=== PATIENT | female | born 1995 | race Caucasian/White ===

== ENCOUNTER → 2019-01-29 15:34 | Outpatient (CLI) | payer OTHER, SELFPAY ==
[2015-12-20 13:01] VITALS: BMI 22.3
== END ==
PROVIDERS: Visit Provider Obstetrics & Gynecology
DX: Z12.4 Encounter for screening for malignant neoplasm of cervix (principal)
CPT/HCPCS: 88175; G0145

== ENCOUNTER → 2020-03-15 13:45 | Outpatient (CLI) | payer OTHER, SELFPAY ==
[2015-12-20 13:01] VITALS: BMI 22.3
[2020-03-15 17:10] LABS: Internal QC Validated? YES +Cl - CLEAR BKGD; Pregnancy, Serum, hCG Quali. NEGATIVE Negative
[2020-03-15 17:18] LABS: Thyroid Stim Hormone (TSH) 1.63 uIU/mL (0.358-3.74)
== END ==
PROVIDERS: Visit Provider Obstetrics & Gynecology
DX: N91.2 Amenorrhea, unspecified (principal); Z12.4 Encounter for screening for malignant neoplasm of cervix
CPT/HCPCS: 36415; 84443; 84703; 88175; G0145

== ENCOUNTER → 2020-09-15 14:26 | Outpatient (CLI) | payer OTHER, SELFPAY ==
[2015-12-20 13:01] VITALS: BMI 22.3
[2020-09-15 15:04] LABS: Hematocrit 42.1 % (37-47); Hemoglobin 14.2 g/dL (12.0-15.0); Mean Corp Hgb Conc 33.7 g/dL (32-36); Mean Corpuscular Hgb 31.1 pg (27.0-32.0); Mean Corpuscular Volume 92.1 fL (81-99); Mean Platelet Vol. 10.3 fl (6.2-12.0); Platelet Count 252 K/mm3 (150-450); RBC Distribution Width CV 11.9 % (11.6-14.6); RBC Distribution Width SD 40.1 fl (35.1-43.9); Red Blood Count 4.57 M/mm3 (4.2-5.4); White Blood Count 5.8 K/mm3 (4.4-11.0)
[2020-09-15 15:37] LABS: Anion Gap 3 (5-15); BUN 8 mg/dL (7-18); Calcium,Total 9.1 mg/dL (8.5-10.1); Chloride 107 mmol/L (98-107); Creatinine, Serum 0.67 mg/dL (0.55-1.02); EST Glomerular Filtration Rate 116 mL/min (>60); Est Glom Filt Rate - Afr Amer 141 mL/min (>60); Follicle Stimulating Hormone 5.2 mIU/mL; Glucose 80 mg/dL (74-106); Luteinizing Hormone 9.6 mIU/mL; Potassium 3.6 mmol/L (3.5-5.1); Sodium Level 139 mmol/L (136-145); Thyroid Stim Hormone (TSH) 0.79 uIU/mL (0.358-3.74)
[2020-09-21 08:19] LABS: Testosterone Free 3.8 pg/mL (0.0-4.2)
== END ==
PROVIDERS: Visit Provider Obstetrics & Gynecology
DX: N93.9 Abnormal uterine and vaginal bleeding, unspecified (principal)
CPT/HCPCS: 36415; 80048; 82627; 83001; 83002; 84146; 84402; 84439; 84443; 85027; 82626

== ENCOUNTER → 2020-11-01 09:58 | Outpatient (CLI) | payer OTHER, SELFPAY ==
[2020-11-01 11:17] LABS: Progesterone Level 0.57 ng/mL (See Comment)
== END ==
PROVIDERS: Visit Provider Obstetrics & Gynecology
DX: N97.0 Female infertility associated with anovulation (principal)
CPT/HCPCS: 36415; 84144

== ENCOUNTER 2021-03-17 10:16 | Outpatient (CLI) | payer OTHER, SELFPAY ==
[2021-03-17 11:18] LABS: Absolute Lymphocyte Count 1.71 X10^3/uL (0.83-4.51); Absolute Neutrophil Count 6.4 X10^3/uL (2.0-7.7); Basophil# 0.04 X10^3/uL; Basophil% 0.5 % (0-1); Eosinophil# 0.04 X10^3/uL; Eosinophils% 0.5 % (0-5); Hematocrit 39.4 % (37-47); Hemoglobin 13.3 g/dL (12.0-15.0); Lymphocyte # 1.71 X10^3/ul (0.83-4.51); Lymphocyte % 19.3 % (19-41); Mean Corp Hgb Conc 33.8 g/dL (32-36); Mean Corpuscular Hgb 30.7 pg (27.0-32.0); Mean Platelet Vol. 10.8 fl (6.2-12.0); Monocyte# 0.65 X10^3/uL; Monocyte% 7.3 % (0-10); NRBC Flagged by Analyzer 0 % (0-5); Neutrophil # 6.41 X10^3/uL (2.7-7.7); Neutrophil % 72.2 % (47-70); Platelet Count 245 K/mm3 (150-450); RBC Distribution Width CV 11.8 % (11.6-14.6); RBC Distribution Width SD 39.1 fl (35.1-43.9); Red Blood Count 4.33 M/mm3 (4.2-5.4); White Blood Count 8.9 K/mm3 (4.4-11.0)
[2021-03-17 11:50] LABS: Anion Gap 7 (5-15); BUN 7 mg/dL (7-18); BUN/Creat Ratio 11.5 RATIO (10-20); Calcium,Total 9.2 mg/dL (8.5-10.1); Chloride 106 mmol/L (98-107); Creatinine, Serum 0.61 mg/dL (0.55-1.02); EST Glomerular Filtration Rate 129 mL/min (>60); Est Glom Filt Rate - Afr Amer 156 mL/min (>60); Glucose 79 mg/dL (74-106); Potassium 3.5 mmol/L (3.5-5.1); Sodium Level 136 mmol/L (136-145)
[2021-03-17 12:21] LABS: HIV - WCH Non-Reactive (Nonreactive); Hepatitis B Surface Antigen Non-Reactive (Nonreactive); Hepatitis C Antibody Non-Reactive (Nonreactive); Rubella IgG Reactive (Nonreactive); Syphilis Antibodies Non-reactive
[2021-03-19 00:06] LABS: Chlamydia By Nucleic Acid AMP Negative (Negative)
[2021-03-19 16:18] LABS: Gonococcus By Nucleic Acid AMP Negative (Negative)
== END 2021-03-17 23:59 | disposition short-term general hospital (02) ==
LOC: WOBLAB 10:18
PROVIDERS: Visit Provider Obstetrics & Gynecology
DX: Z34.81 Encounter for supervision of other normal pregnancy, first trimester (principal)
CPT/HCPCS: 36415; 80048; 85025; 86703; 86762; 86780; 86803; 87086; 87088; 87340; 87491; 87591

== ENCOUNTER 2021-04-21 00:37 | Emergency (ER) | payer OTHER, SELFPAY ==
[2021-04-21 00:38] VITALS: BP 112/65; PULSE 68; RESP 16; TEMP 36.4; O2SAT 100; BMI 19.5
[2021-04-21 00:40] VITALS: BP 112/65; PULSE 68; RESP 16; TEMP 36.4; O2SAT 100
--- NOTE | 2021-04-21 00:51 | EX.ED.DYSGE1 ---
HPI History of Present Illness Chief Complaint: Complaint Narrative Narrative: Patient is a 25-year-old female who is a G1, P0 approximate 11 weeks . She states she has a history of recurrent urinary tract infections. She states she went to bed normally and then awoke about 2 hours ago with increased urinary frequency and dysuria. She denies any vaginal bleeding or discharge she denies any fevers or chills. She states that based on her history of recurrent UTIs she feels she has another urinary tract infection and therefore comes in for evaluation PFSH [facility] Home Medications amoxicillin 500 mg PO TID 7 Days #21 cap 04/21/21 [Rx Last Taken Unknown] phenazopyridine [Pyridium] 200 mg PO TID 2 Days #6 tab 04/21/21 [Rx Last Taken Unknown] [id number] [] 1 tab PO DAILY 04/21/21 [History Last Taken Unknown] Allergy/AdvReac Type Severity Reaction Status Date / Time albumin colloid, human Allergy Itching Verified 04/21/21 00:40 [Albumin Colloid, Human] prednisone Allergy Angioedema Verified 04/21/21 00:40 promethazine HCl Allergy Itching Verified 04/21/21 00:40 [From Phenergan] morphine AdvReac HALLUCINATI Verified 04/21/21 00:40 ONS Social History Smoking Status: Never smoker ROS ROS ED Constitutional Constitutional ED: Denies chills or fever(s) ENT ENT ED: Denies sore throat Cardiovascular Cardiovascular: Denies chest pain Respiratory/Chest Respiratory/Chest: Denies cough or dyspnea Gastrointestinal Gastrointestinal: Denies abdominal pain, diarrhea, nausea or vomiting Genitourinary Genitourinary ED: Reports dysuria and urinary frequency; Denies hematuria Musculoskeletal Musculoskeletal: Denies back pain or myalgias Integumentary Denies rash Neurologic Neurologic: Denies headache(s) Hematologic/Lymphatic Hematologic/Lymphatic: Denies easy bleeding or easy bruising EXAM Physical Exam Const Vital Signs: 04/21/21 00:38 04/21/21 00:40 Temperature 97.6 F L 97.6 F L Temperature Source Oral Oral Pulse Rate 68 68 Respiratory Rate 16 16 Blood Pressure 112/65 112/65 Blood Pressure Mean 80 80 Pulse Ox 100 100 Oxygen Delivery Method Room Air Room Air Positive well nourished and well developed General Appearance ED: well developed Eyes PERRL and EOMs intact bilaterally Neck supple Resp normal respiratory effort and clear to auscultation bilaterally Cardio regular rate and regular rhythm GI normal to inspection, nondistended, normoactive bowel sounds, non-tender, non-distended and no masses Auscultation: normoactive bowel sounds Palpation: soft Back/Spine no CVA tenderness Extremity normal to inspection Neuro oriented x3 and CN's II-XII intact bilaterally Sensorium / Orientation: alert Motor Exam: strength 5/5 throughout Psych mental status grossly normal Skin no rashes or lesions noted MDM MDM MDM Narrative Medical decision making narrative: Patient presented to the ER afebrile and normotensive. She also denies any vaginal bleeding or discharge or abdominal pain So I felt need for urine sample at this time. The patient's urine sample showed greater than 100 white blood cells +1 bacteria and no contamination. There are blood cells noted but a believe this is most likely related to the infectious process and coming from the bladder as patient denies any vaginal bleeding. Therefore patient will have the urine sent for culture we will start her on amoxicillin and Pyridium for symptom control and she can follow-up with her [employer]CR[employer] for repeat evaluation Lab Data Attestation: I reviewed the patient's lab results. Labs: Laboratory Results - last 24 hr 04/21/21 00:45 Urine Color Alda Urine Clarity Cloudy Urine pH 6.0 Ur Specific [place] 1.020 Urine Protein 100 H Urine Glucose (UA) Normal Urine Ketones 5 H Urine Occult Blood 250 H Urine Nitrite Negative Urine Bilirubin Negative Urine Urobilinogen Normal Ur Leukocyte Esterase 500 H Urine RBC > 100 SEEN Urine WBC >100 SEEN Ur Squamous Epith Cells 0-5 SEEN Urine Bacteria 1+ Urine Mucus 0 SEEN Discharge Plan Triage Chief Complaint: Complaint ED Provider: James Cortez Dx/Rx/DC Orders Clinical Impression: Acute hemorrhagic cystitis Instructions: ED CYSTITIS Female Adult Prescriptions: New amoxicillin 500 mg capsule 500 mg PO TID 7 Days Qty: 21 RF: 0 phenazopyridine [Pyridium] 200 mg tablet 200 mg PO TID 2 Days Qty: 6 RF: 0 No Action 1 mg Tablet 1 tab PO DAILY RF: 0 Primary Care Provider: Reba Hager NP Referrals: Froilan Albrecht MD [STAFF PHYSICIAN] - 5-7 Days Reba Hager NP, TOTER-C [Primary Care Provider] - Disposition Disposition: Home, Self Care
[2021-04-21 00:55] LABS: Mucous, Urine 0 SEEN /hpf (<or=2+)
[2021-04-21 00:57] LABS: Color, Urine Amber (Yellow); Glucose, Dipstick Normal (Normal); Ketone-Dipstick 5 mg/dl (Negative); Leukocyte Esterase-Dipstick 500 /ul (Negative); Nitrite-Dipstick Negative (Negative); Occult Blood-Urine 250 /ul (Negative); Protein-Dipstick 100 mg/dl (Negative); Urine Bilirubin Dipstick Negative (Negative); Urine Clarity Cloudy (Clear); Urine Urobilinogen Normal (Normal)
[2021-04-21 01:04] LABS: Red Blood Cells-Urine > 100 SEEN /hpf (0-5); White Blood Cells >100 SEEN /hpf (0-5)
[2021-04-21 01:05] LABS: Bacteria 1+ /hpf (None Seen); Squamous Epithelial Cells - UA 0-5 SEEN /hpf (5-10)
[2021-04-21] MEDS: Phenazopyridine 95 MG Tablet 190 MG PO (01:27)
[2021-04-21] MEDS: AMOXICILLIN 500 MG CAPSULE PO (01:27)
== END 2021-04-21 01:29 | disposition home or self-care (01) ==
PROVIDERS: Emergency Provider Emergency Medicine; PCP Nurse Practitioner Primary Care; Visit Provider Emergency Medicine
DX: O23.11 Infections of bladder in pregnancy, first trimester (principal); Z3A.11 11 weeks gestation of pregnancy; N30.01 Acute cystitis with hematuria; Z87.440 Personal history of urinary (tract) infections
CPT/HCPCS: 81001; 87077; 87086; 87088; 87186; 99283

== ENCOUNTER 2021-05-03 14:59 | Outpatient (CLI) | payer OTHER, SELFPAY | END 2021-05-03 23:59 | disposition home or self-care (01) | LOC: LABSPEC 15:00 | PROVIDERS: PCP Nurse Practitioner Primary Care; Visit Provider Obstetrics & Gynecology | DX: N39.0 Urinary tract infection, site not specified (principal) | CPT/HCPCS: 87077; 87086; 87088; 87186 ==

== ENCOUNTER 2021-05-24 09:08 | Outpatient (CLI) | payer OTHER, SELFPAY | END 2021-05-24 23:59 | disposition home or self-care (01) | LOC: WOBLAB 09:08 | PROVIDERS: PCP Nurse Practitioner Primary Care; Visit Provider Obstetrics & Gynecology | DX: Z34.82 Encounter for supervision of other normal pregnancy, second trimester (principal) | CPT/HCPCS: 36415 ==

== ENCOUNTER → 2021-07-08 | Outpatient (CLI) | payer OTHER, SELFPAY ==
[2021-07-08 10:09] LABS: Cholesterol 203 mg/dL (200); Glucose 78 mg/dL (74-106); High Density Lipoprotein 117 mg/dL; Triglycerides 105 mg/dL; Very Low Density Lipoprotein 21 mg/dL (5-40)
== END | disposition home or self-care (01) ==
LOC: WOBLAB 08:34
PROVIDERS: PCP Nurse Practitioner Primary Care; Visit Provider Obstetrics & Gynecology
DX: Z13.29 Encounter for screening for other suspected endocrine disorder (principal); Z13.220 Encounter for screening for lipoid disorders
CPT/HCPCS: 36415; 80061; 82947

== ENCOUNTER → 2021-07-28 | Outpatient (CLI) | payer OTHER, SELFPAY ==
[2021-07-28 09:25] LABS: Hemoglobin 12.5 g/dL (12.0-15.0); Mean Corp Hgb Conc 32.9 g/dL (32-36); Mean Corpuscular Hgb 31.6 pg (27.0-32.0); Mean Corpuscular Volume 96.2 fL (81-99); Mean Platelet Vol. 10.3 fl (6.2-12.0); Platelet Count 185 K/mm3 (150-450); RBC Distribution Width CV 12.3 % (11.6-14.6); RBC Distribution Width SD 43.1 fl (35.1-43.9); Red Blood Count 3.95 M/mm3 (4.2-5.4); White Blood Count 13.7 K/mm3 (4.4-11.0)
[2021-07-28 09:48] LABS: Cholesterol 184 mg/dL (200); Glucose Challenge Gest 1H 50g 106 mg/dL (70-140); High Density Lipoprotein 97 mg/dL; Triglycerides 168 mg/dL; Very Low Density Lipoprotein 34 mg/dL (5-40)
== END | disposition home or self-care (01) ==
LOC: WOBLAB 09:10
PROVIDERS: PCP Nurse Practitioner Primary Care; Visit Provider Obstetrics & Gynecology
DX: Z34.82 Encounter for supervision of other normal pregnancy, second trimester (principal)
CPT/HCPCS: 36415; 80061; 82950; 85027

== ENCOUNTER → 2021-10-11 | Outpatient (CLI) | payer OTHER, SELFPAY | END | disposition home or self-care (01) | PROVIDERS: PCP Nurse Practitioner Primary Care; Visit Provider Obstetrics & Gynecology | DX: Z34.90 Encounter for supervision of normal pregnancy, unspecified, unspecified trimester (principal) | CPT/HCPCS: 87077; 87081; 87186 ==

== ENCOUNTER → 2021-10-25 | Outpatient (CLI) | payer OTHER, SELFPAY ==
[2021-10-25 08:50] LABS: ROM Internal Control Test YES-OK TO RESULT pt. (Internal QC); ROM Patient Test Negative (Negative)
== END | disposition home or self-care (01) ==
PROVIDERS: PCP Nurse Practitioner Primary Care; Referring Provider Obstetrics & Gynecology; Visit Provider Obstetrics & Gynecology
DX: N89.8 Other specified noninflammatory disorders of vagina (principal)
CPT/HCPCS: 84112

== ENCOUNTER 2021-11-10 21:30 | Inpatient (IN) | payer OTHER, SELFPAY ==
[2021-11-10 20:35] VITALS: TEMP 36.4
[2021-11-10 20:36] VITALS: BP 120/63; PULSE 86; O2SAT 94
[2021-11-10 21:20] LABS: ROM Internal Control Test YES-OK TO RESULT pt. (Internal QC)
[2021-11-10 21:22] LABS: ROM Patient Test POSITIVE (Negative)
[2021-11-10 21:42] VITALS: BMI 32.1
[2021-11-10] MEDS: Lactated Ringers 1,000 ML 50 ML IV (22:04)
[2021-11-10 22:14] LABS: Absolute Lymphocyte Count 2.99 X10^3/uL (0.83-4.51); Absolute Neutrophil Count 10.5 X10^3/uL (2.0-7.7); Basophil# 0.05 X10^3/uL; Basophil% 0.3 % (0-1); Eosinophil# 0.16 X10^3/uL; Eosinophils% 1.1 % (0-5); Hematocrit 38.5 % (37-47); Hemoglobin 12.8 g/dL (12.0-15.0); Lymphocyte # 2.99 X10^3/ul (0.83-4.51); Mean Corp Hgb Conc 33.2 g/dL (32-36); Mean Corpuscular Hgb 31.4 pg (27.0-32.0); Mean Corpuscular Volume 94.4 fL (81-99); Mean Platelet Vol. 11.1 fl (6.2-12.0); Monocyte# 1.12 X10^3/uL; Monocyte% 7.5 % (0-10); NRBC Flagged by Analyzer 0 % (0-5); Neutrophil # 10.45 X10^3/uL (2.7-7.7); Platelet Count 166 K/mm3 (150-450); RBC Distribution Width CV 12.7 % (11.6-14.6); RBC Distribution Width SD 44.2 fl (35.1-43.9); Red Blood Count 4.08 M/mm3 (4.2-5.4); White Blood Count 14.9 K/mm3 (4.4-11.0)
[2021-11-10 22:44] VITALS: BP 116/54; PULSE 82; PULSE 83; TEMP 36.1; O2SAT 97
[2021-11-10 23:42] VITALS: TEMP 36
[2021-11-10 23:43] VITALS: BP 111/62; PULSE 75; PULSE 76; O2SAT 99
[2021-11-11] VITALS (69 sets, daily range): BP systolic 94–132; BP diastolic 45–74; PULSE 75–117; RESP 16–18; TEMP 36.1–37.3; O2SAT 94–100
[2021-11-11] MEDS: Oxytocin 30 units/NS 500 ml 30 UNITS/500 ML IV.SOLN IV (00:40)
[2021-11-11] MEDS: Penicillin G 3,000,000 Units 50 ML 100 UNITS IV ×3 (02:40→10:49)
--- NOTE | 2021-11-11 02:44 | HP.PCM.OB_ITS ---
HPI - General General Date of Admission: 11/10/21 HPI Narrative RONALD MOHAN, is a 26 F who presents IAL SROM clear fluid Maternal Data Information KHAI Calculator Estimated Delivery Date Method Current WG Current Estimate 11/06/21 Manual 40w 5d PFSH [facility] Medical History (Updated 11/11/21 @ 02:[address] Mracelina Diallo MD) History of blood transfusion Infertility Home Medications [id number] 1 mg tablet 1 tab PO DAILY 04/21/21 [History Last Taken 11/09/21 20:00] Allergy/AdvReac Type Severity Reaction Status Date / Time albumin colloid, human Allergy Itching Verified 11/09/21 14:50 [Albumin Colloid, Human] prednisone Allergy Angioedema Verified 11/09/21 14:50 promethazine HCl Allergy Itching Verified 11/09/21 14:50 [From Phenergan] morphine AdvReac HALLUCINATI Verified 11/09/21 14:50 ONS Surgical History History of hip surgery Social History Smoking Status: Never smoker second hand exposure: No alcohol intake: never substance use type: does not use caffeine: Yes what type of physical activity do you participate in: none seatbelt use: always do you feel safe at home: Yes additional social history: [employer] 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 History 1 Elective abortions Hx Para 0 Spontaneous abortions 0 Hx # Term Pregnancies Ectopic pregnancies Hx # Pregnancies Multiple births # of living children Visit Details Expected Delivery Route/Plan Labor Preferences- CB/BF classes: [] labor support person: [] labor intervention preferences: [] pain management options preferred: [] cut cord/dad catch: [] : [] PP control planned: [] discussed possible routes of delivery and associated risks: [] special requests: [] Plans Covid status: [] Flu vaccine: [] Tdap vaccine: [] Rhogam: [] LARC form signed: [] Problem list reviewed and updated with the most current plan of care details and appropriate orders placed. Relevant counseling for the gestational age provided. 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 no vb lof good fm no regular ctx. gbs collected. 10/19/21 -?-?-?-?-?-?-?-?-?-?-?-?- 37w 3d 166 lb 116/82 Negative -?-?-?-?-?-?-?-?-?-?-?-?- Negative 140 37 Cephalic 1 .5 -?-?-?-?-?-?-?-?-?-?-?-?- 80 -2 JV- no lof , vaginal bleeding, or dec fm. 10/25/21 -?-?-?-?--?-?-?-?-?-?-?-?- 38w 2d 168 lb 100/68 Negative -?-?-?-?-?-?-?-?-?-?-?-?- Negative 158 38 Cephalic 2 -?-?-?-?-?-?-?-?-?-?-?-?- 80 -2 JV- pt com [place] of leaking fluid since sunday a ROM plus was ordered and is pending. 11/02/21 -?-?-?-?-?-?-?-?-?-?-?-?- 39w 3d 167 lb 2 oz 109/74 Nega tive -?-?-?-?-?-?-?-?--?-?-?-?- Negative 140 Cephalic 3 -?-?-?-?-?-?-?-?-?-?-?-?- 80 -2 JV-no lof, vaginal bleeding ,or dec fm. 11/09/21 -?-?-?-?-?-?-?-?-?-?-?-?- 40w 3d 168 lb 111/74 Negative -?-?-?-?-?-?-?-?-?-?-?-?- Negative 145 Cephalic 3 -?-?-?-?-?-?-?-?-?-?-?-?- 80 -1 JV- no com plaints other than fatigue and wants IOL 11/10/21 -?-?-?-?-?-?-?-?-?-?-?-?- 40w 4d 170 lb 120/63 116/54 111/62 118/64 126/67 -?-?-?-?-?-?-?-?-?-?-?-?- -?-?-?-?-?-?-?-?-?-?-?-?- NST FHR Rate Baby A Baseline: 140 Variability:: Moderate Accelerations:: 15 x 15 Decelerations:: None NST Reactive:: Yes FHR Category:: Category I Uterine Activity:: q3-5 ROS Constitutional Constitutional: Reports systems reviewed and no addt'l complaints, except as documented ENT HEENT: Reports systems reviewed and no addt'l complaints, except as documented Cardiovascular Cardiovascular: Reports systems reviewed and no addt'l complaints, except as documented Respiratory/Chest Respiratory/Chest: Reports systems reviewed and no addt'l complaints, except as documented Gastrointestinal Gastrointestinal: Reports systems reviewed and no addt'l complaints, except as d ocumented and nausea; Denies abdominal pain Genitourinary Genitourinary: Reports systems reviewed and no addt'l complaints, except as documented, contractions Details: present and frequency (regular ) and movement Details: present Musculoskeletal Musculoskeletal: Reports systems reviewed and no addt'l complaints, except as documented Integumentary Integumentary: Reports as per HPI Neurologic Neurologic: Reports systems reviewed and no addt'l complaints, except as documented Endocrine Endocrinology: Reports systems reviewed and no addt'l complaints, except as documented Vital Signs Vital Signs Vital Signs: 11/10/21 20:36 11/10/21 20:36 11/10/21 20:36 Temperature Temperature Source Pulse Rate 86 Blood Pressure 120/63 BP Systolic 120 BP Diastolic 63 Pulse Ox 94 11/10/21 20:35 11/10/21 20:36 11/10/21 22:44 Temperature 97.5 F L Temperature Source Temporal Pulse Rate Blood Pressure 116/54 L BP Systolic 116 BP Diastolic 54 Pulse Ox 11/10/21 22:44 11/10/21 22:44 11/10/21 22:44 Temperature 97.0 F L Temperature Source Pulse Rate 82 83 Blood Pressure BP Systolic BP Diastolic Pulse Ox 11/10/21 22:44 11/10/21 23:43 11/10/21 23:43 Temperature Temperature Source Pulse Rate 76 Blood Pressure 111/62 BP Systolic 111 BP Diastolic 62 Pulse Ox 97 11/10/21 23:42 11/10/21 23:43 11/10/21 23:43 Temperature 96.8 F L Temperature Source Pulse Rate 75 Blood Pressure BP Systolic BP Diastolic Pulse Ox 99 11/11/21 00:42 11/11/21 00:42 11/11/21 01:38 Temperature Temperature Source Pulse Rate 77 Blood Pressure 118/64 126/67 H BP Systolic 118 126 BP Diastolic 64 67 Pulse Ox 11/11/21 01:38 11/11/21 01:38 11/11/21 01:39 Temperature 97.3 F L Temperature Source Pulse Rate 79 81 Blood Pressure BP Systolic BP Diastolic Pulse Ox 11/11/21 01:39 Temperature Temperature Source Pulse Rate Blood Pressure BP Systolic BP Diastolic Pulse Ox 100 Weight Weight: 170 lb Body Mass Index (BMI) 32.1 Physical Exam Const alert, oriented x3 and healthy appearing Constitutional Narrative: uncomfortable with contractions HEENT normocephalic and moist oral mucous membranes Head and Scalp: atraumatic Neck full ROM, no lymphadenopathy, supple and thyroid normal General: trachea midline Thyroid: thyroid normal Lymph Lymphatic: no lymphadenopathy noted Chest inspection of chest normal Resp normal respiratory effort Cardio regular rate GI normal to inspection, nondistended, normoactive bowel sounds, soft to palpation and non-tender Inspection: gravid external exam normal Bimanual Exam - Vag & Uterus: uterus non-tender Manual OB Exam: estimated gestational size appropriate, presentation cephalic, dilated, effaced and station Extremity normal to inspection General Extremity: Negative for edema Skin no rashes or lesions noted Neuro deep tendon reflexes 2+ bilaterally Motor Exam: strength 5/5 throughout and clonus absent Psych mental status grossly normal Labs Labs Labs: Blood Type O POSITIVE Antibody Screen NEGATIVE Hct 38.5 % (37-47) Hgb 12.8 g/dL (12.0-15.0) Syphilis Total Ab Non-reactive Rubella IgG Antibody Reactive (Nonreactive) Hep Bs Antigen Non-Reactive (Nonreactive) Chlamydia DNA (SAKINA) Negative (Negative) Neisseria gonorrhoeae DNA (SAKINA) Negative (Negative) HIV 1&2 Antibody Non-Reactive (Nonreactive) Glucose 1 Hr 50 gm 106 mg/dL (70-140) Miscellaneous Test Assessment & Plan (1) Supervision of normal : COMMENT: PRR KHAI 11/06/21 boy All Sonido (2) : QUALIFIERS: Weeks of gestation: 40 weeks Qualified Code(s): Z3A.40 - 40 weeks gestation of COMMENT: nipt low risk male. ntd screen declined. carrier testing negative. nl anatomy with [employer]. ANDRAE 37 weeks. (3) Infertility, female: COMMENT: IUI from [facility] (4) COVID-19 affecting , antepartum: COMMENT: growth US q 4 weeks. baby asa. (5) Positive GBS test: COMMENT: PCN at delivery (6) SROM (spontaneous rupture of membranes): PLAN: Plan Patient presents IAL, plan expectant management for , pitocin PRN if needed. Pain management: prefers natural . GBS neg. Management of any complications: none I have reviewed the [facility] and made any clinically relevant updates.
[2021-11-11] MEDS: LACTATED RINGERS 500 ML 999 ML IV ×3 (02:45→05:27)
[2021-11-11] MEDS: fentaNYL-bupivacaine (epidural) 100 ML BAG EPIDURAL ×2 (05:12→09:34)
[2021-11-11] MEDS: Lactated Ringers 1,000 ML 200 ML IV (07:39)
[2021-11-11] MEDS: Mag Hydrox/Al Hydrox/Simeth 30 ML UDC PO (09:29)
[2021-11-11] MEDS: Oxytocin 30 units/NS 500 ml 30 UNITS/500 ML IV.SOLN 334 UNITS IV (12:38)
[2021-11-11] MEDS: Naproxen 500 MG Tablet PO (15:51)
--- NOTE | 2021-11-11 16:00 | NURSING ---
Report received from Awilda ZAMUDIO, taking over pt care at this time.
[2021-11-11] MEDS: Senna/Docusate Sodium 1 Tablet PO (18:15)
[2021-11-11] MEDS: Acetaminophen 500 MG Tablet 1000 MG PO (21:59)
--- NOTE | 2021-11-11 22:07 | EX.PCM.OBRPT ---
Assessment & Plan (1) SROM (spontaneous rupture of membranes): (2) Positive GBS test: COMMENT: PCN at delivery (3) COVID-19 affecting , antepartum: COMMENT: growth US q 4 weeks. baby asa. (4) Infertility, female: COMMENT: IUI from [facility] (5) : QUALIFIERS: Weeks of gestation: 40 weeks Qualified Code(s): Z3A.40 - 40 weeks gestation of COMMENT: nipt low risk male. ntd screen declined. carrier testing negative. nl anatomy with [employer]. ANDRAE 37 weeks. (6) Supervision of normal : COMMENT: PRR KHAI 11/06/21 fritz Carrizales Sonido (7) Vaginal delivery: COMMENT: SM fritz paysen 40 IAL SROM Maternal Data Information KHAI Calculator Estimated Delivery Date Method Current WG Current Estimate 11/06/21 Manual 40w 5d Vaginal Delivery Operative Information Date of Procedure: 11/11/21 Pre-Operative Diagnosis: IAL Post-Operative Diagnosis: same Surgery / Procedure Performed: Spontaneous Vaginal Delivery Type of Anesthesia: Epidural Special Medications: none Estimated Blood Loss: 300 Fluids Replaced: crystalloid Findings Description of Procedure: Patient began pushing and delivered the head in the ANDRA presentation. The head was delivered atraumatically . The anterior and posterior shoulders delivered without complication followed by the rest of the and the was placed on the maternal abdomen. Delayed cord clamping was employed for approximately 60 seconds. Cord was clamped and cut and gentle traction was applied to the cord and the placenta delivered spontaneously immediately following it was noted to be intact with three-vessel cord. The perineum and vagina were inspected and noted to have a second degree laceration repaired in the usual fashion with 3-0 rpaide. EBL was 300. Patient and tolerated delivery well. Presentation: ANDRA Amniotic Membrane Rupture Type: Spontaneous Amniotic Fluid Description: Lightly stained meconium Placental Delivery Description: Spontaneous Placenta Disposition: [facility] Cord Vessel Description: 3 Vessels Cord Entanglement: None A Gender: Male Delayed Cord Clamping: Yes Post Vaginal Delivery Medications Given After Delivery: IV Pitocin Episiotomy Description: None Laceration: Perineal Extension/lac and 2nd degree Complication Complications: None Procedures Urinary/Genital [id number]: [id number] Vaginal Delivery [facility]
--- NOTE | 2021-11-11 22:08 | DCINST_ITS ---
Discharge Instructions Diet Discharge Diet: No restrictions Activity Discharge Activity: Return to Normal Activity, May Drive, May Shower and May Take a Tub Bath (in 4 weeks) May resume sexual activity in: 6-8 weeks (after seen by OB provider) Weight Bearing Status: Full weight bearing Lifting Restrictions: none Dressing / Incision Call your doctor if you observe: Fever of 101 or Higher, Inability to urinate, Using more than 1 pad per hour (for more than 2 hours in a row or more), Shortness of breath, Dizziness, Chest pain and - (headache not controlled with tylenol, change in vision) Follow Up Care When: in 6 weeks for visit, call the office to make the appointment. If you had elevated blood pressures call the office to be seen within 1 week. Test Results: Test results from this visit will be discussed in further detail at your follow- up appointment, if applicable. Discharge Plan Admission Admit Date/Time: 11/10/21 21:30 Attending Provider: Marcelina Diallo Primary Care Provider: Reba Hager NP Discharge Orders/Prescriptions Prescriptions: No Action 1 mg Tablet 1 tab PO DAILY Referrals / Follow Up: Reba Hager NP, AIR TRAFFIC CONTROL OPERATOR-C [Primary Care Provider] - Disposition Disposition (needs filled in before D/C Order can be placed): Home, Self Care
[2021-11-12 01:06] VITALS: BP 94/54; PULSE 83; RESP 18; TEMP 36.3
[2021-11-12] MEDS: Naproxen 500 MG Tablet PO (04:11)
[2021-11-12 04:12] VITALS: BP 100/47; PULSE 83; RESP 14; TEMP 36.1
[2021-11-12 08:00] VITALS: BP 92/51; PULSE 86; RESP 16; TEMP 36.2; O2SAT 97
--- NOTE | 2021-11-12 08:46 | NURSING ---
labia minor and clitoris protrudes past outer labia. Pt states this is her normal anatomy.
--- NOTE | 2021-11-12 09:15 | PCM.PN.OB ---
Subjective Subjective Patient doing well without complaints. Tolerating PO. Ambulating and voiding without difficulty. feeding well. Denies chest pain, shortness of breath, calf pain/swelling, fevers, chills, lightheadedness. Objective Data Objective Data Vital Signs: Vital Signs Temp Pulse Resp BP Pulse Ox O2 Del Method 97.1 F L 86 16 92/51 L 97 Room Air 11/12/21 08:00 11/12/21 08:00 11/12/21 08:00 11/12/21 08:00 11/12/21 08:00 11/12/21 08:00 Oxygen Delivery Method Room Air Weight: 170 lb Body Mass Index (BMI) 32.1 Intake & Output: Intake and Output for Last 24 Hours 11/10/21 11/11/21 11/12/21 23:59 23:59 23:59 Intake Total 164.17 / 164.17 3885.53 / 3885.53 Output Total 2750 / 2750 Balance 164.17 / 164.17 1135.53 / 1135.53 Lab / Micro Data Result Diagrams: 11/10/21 21:50 Micro: Microbiology 11/10/21 21:50 Nasal Secretion SARS-CoV-2 Antigen (Rapid) - Final ROS Constitutional Constitutional: Reports systems reviewed and no addt'l complaints, except as documented Cardiovascular Cardiovascular: Reports systems reviewed and no addt'l complaints, except as documented Respiratory/Chest Respiratory/Chest: Reports systems reviewed and no addt'l complaints, except as documented Gastrointestinal Gastrointestinal: Reports systems reviewed and no addt'l complaints, except as documented Physical Exam Const alert, oriented x3 and no apparent distress HEENT Head and Scalp: atraumatic Resp normal respiratory effort GI soft to palpation and non-tender Bimanual Exam - Vag & Uterus: uterus non-tender Uterus Palpation: uterus fundus firm (below Umbilicus)
[2021-11-12 10:00] VITALS: BP 87/41; PULSE 79; RESP 16; TEMP 36.4; O2SAT 98
[2021-11-12 15:07] VITALS: BP 104/64; PULSE 90; RESP 18; TEMP 36.3
== END 2021-11-12 16:30 | disposition home or self-care (01) | DRG 807 ==
LOC: WPOUT 21:46 → WP 21:46
PROVIDERS: Admitting Provider Obstetrics & Gynecology; PCP Nurse Practitioner Primary Care; Visit Provider Obstetrics & Gynecology
DX: O98.82 Other maternal infectious and parasitic diseases complicating childbirth (principal); Z37.0 Single live birth; B95.1 Streptococcus, group B, as the cause of diseases classified elsewhere; Z3A.40 40 weeks gestation of pregnancy; Z86.16 Personal history of COVID-19; O77.0 Labor and delivery complicated by meconium in amniotic fluid; O70.1 Second degree perineal laceration during delivery
CPT/HCPCS: 59025; 59050; 84112; 85025; 86850; 86900; 86901; 87426; 99218; J7120; G0378

== ENCOUNTER 2022-07-07 02:56 | Emergency (ER) | payer OTHER, SELFPAY ==
[2022-07-07 02:56] VITALS: BP 127/73; PULSE 82; RESP 16; TEMP 36.8; O2SAT 99; BMI 27.6
[2022-07-07 03:10] LABS: Mucous, Urine 0 SEEN /hpf (<or=2+)
[2022-07-07 03:12] LABS: Color, Urine Amber (Yellow); Glucose, Dipstick Normal (Normal); Ketone-Dipstick Negative (Negative); Leukocyte Esterase-Dipstick 500 /ul (Negative); Nitrite-Dipstick Positive (Negative); Occult Blood-Urine 250 /ul (Negative); Protein-Dipstick 100 mg/dl (Negative); Specific Gravity, Urine 1.025 (1.002-1.030); Urine Clarity Turbid (Clear); Urine Urobilinogen 8 mg/dl (Normal)
[2022-07-07 03:26] LABS: Urine Bilirubin Dipstick 3 mg/dL (Negative)
[2022-07-07 03:34] LABS: Red Blood Cells-Urine > 100 SEEN /hpf (0-5); Squamous Epithelial Cells - UA 5-10 SEEN /hpf (5-10); White Blood Cells 50-100 SEEN /hpf (0-5)
[2022-07-07 03:35] LABS: Bacteria 4+ /hpf (None Seen); Internal QC Validated? YES +Cl - CLEAR BKGD; Pregnancy, Urine Negative Negative
--- NOTE | 2022-07-07 03:47 | EDS_ITS ---
HPI History of Present Illness Chief Complaint: Complaint Narrative Narrative: Patient is a 27-year-old female with past medical history of remote acute kidney injury from gastroenteritis when she was 6 years old. She states ever since that time she feels like she is susceptible to urinary tract infections. She states that during the day she felt normal but this evening started noticing dysuria as well as frequency and urgency. She denies any fevers or chills or back pain. She states there is no concern for . She reports there is no vaginal discharge or bleeding and she does not have concern for STD. However as she has concern for a urinary tract infection she comes in for evaluation [facility] Medical History Acute kidney failure History of blood transfusion Infertility Home Medications cephalexin 500 mg capsule 500 mg PO TID 7 days #21 caps 07/07/22 [Rx Last Taken Unknown] phenazopyridine 200 mg tablet (Pyridium) 200 mg PO TID PRN pain 3 days #9 tabs 07/07/22 [Rx Last Taken Unknown] Allergy/AdvReac Type Severity Reaction Status Date / Time albumin colloid, human Allergy Itching Verified 07/07/22 02:57 [Albumin Colloid, Human] prednisone Allergy Angioedema Verified 07/07/22 02:57 promethazine HCl Allergy Itching Verified 07/07/22 02:57 [From Phenergan] morphine AdvReac HALLUCINATI Verified 07/07/22 02:57 ONS Surgical History History of hip surgery Social History Smoking Status: Never smoker second hand exposure: No alcohol intake: never substance use type: does not use caffeine: Yes what type of physical activity do you participate in: none seatbelt use: always do you feel safe at home: Yes additional social history: [employer] 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 ROS ROS ED Constitutional Constitutional ED: Denies chills or fever(s) ENT ENT ED: Denies sore throat Cardiovascular Cardiovascular: Denies chest pain Respiratory/Chest Respiratory/Chest: Denies cough or dyspnea Gastrointestinal Gastrointestinal: Reports abdominal pain; Denies diarrhea, nausea or vomiting Genitourinary Genitourinary ED: Reports dysuria and urinary frequency; Denies hematuria Musculoskeletal Musculoskeletal: Denies back pain or myalgias Integumentary Denies rash Neurologic Neurologic: Denies headache(s) Hematologic/Lymphatic Hematologic/Lymphatic: Denies easy bleeding or easy bruising EXAM Physical Exam Const Vital Signs: 07/07/22 02:56 07/07/22 03:58 Temperature 98.3 F Temperature Source Temporal Pulse Rate 82 80 Respiratory Rate 16 16 Blood Pressure 127/73 H Blood Pressure Mean 91 Pulse Ox 99 Oxygen Delivery Method Room Air Positive well nourished and well developed General Appearance ED: well developed Eyes PERRL and EOMs intact bilaterally Neck supple Resp normal respiratory effort and clear to auscultation bilaterally Cardio regular rate and regular rhythm GI non-distended GI Narrative: Abdomen is soft and nondistended with normal active bowel sounds. There is pain on palpation in the suprapubic region consistent/concerning for urinary tract infection. No voluntary guarding or rigidity Auscultation: normoactive bowel sounds Palpation: soft Back/Spine no CVA tenderness Extremity normal to inspection Neuro oriented x3 and CN's II-XII intact bilaterally Sensorium / Orientation: alert Psych mental status grossly normal Skin no rashes or lesions noted MDM MDM MDM Narrative Medical decision making narrative: Patient presented to the ER with stable vitals and no CVA pain so my concern for pyelonephritis or kidney stone is low. She has remote history of acute kidney injury when she was 6 years old but as that was over 20 years ago and patient has stable vitals I do not feel there is need for blood work to reassess for this once again. History and exam is most consistent with UTI so therefore urine sample was obtained. test is negative but urine shows changes consistent with infection with +4 bacteria and 50-100 white blood cell. Therefore the urine will be sent for culture and patient will be started on Keflex but as she has no signs of urosepsis and my concern for acute kidney injury is low she is otherwise safe for discharge History & Record Review Discussion w/independent historian: Patient and Significant other Lab Data Attestation: I reviewed the patient's lab results. Labs: Laboratory Results - last 24 hr 07/07/22 03:02 Urine Color Alda Urine Clarity Turbid Urine pH 6.0 Ur Specific [place] 1.025 Urine Protein 100 H Urine Glucose (UA) Normal Urine Ketones Negative Urine Occult Blood 250 H Urine Nitrite Positive H Urine Bilirubin 3 H Urine Urobilinogen 8 H Ur Leukocyte Esterase 500 H Urine RBC > 100 SEEN Urine WBC 50-100 SEEN Ur Squamous Epith Cells 5-10 SEEN Urine Bacteria 4+ Urine Mucus 0 SEEN Urine Test Negative Discharge Plan Triage Chief Complaint: Complaint ED Provider: James Cortez Dx/Rx/DC Orders Clinical Impression: Urinary tract infection Instructions: Urinary Tract Infections in Women Prescriptions: New cephalexin 500 mg capsule 500 mg PO TID 7 Days Qty: 21 0RF phenazopyridine [Pyridium] 200 mg tablet 200 mg PO TID PRN (Reason: pain) 3 Days Qty: 9 0RF Primary Care Provider: Reba Hager NP Referrals: Reba Hager NP, [employer] [Primary Care Provider] - Activity Restrictions/Additional Instructions: Your exam and urine sample today correlate with a urinary tract infection. Take the antibiotic as directed to help resolve the symptoms. It will typically take 2 to 3 days for symptoms to improve. If you have any further concerns please return for repeat evaluation Disposition Disposition: Home, Self Care Discharge Date/Time: 07/07/22 03:59
[2022-07-07] MEDS: Phenazopyridine 95 MG Tablet 190 MG PO (03:50)
[2022-07-07] MEDS: Cephalexin 250 MG Capsule 500 MG PO (03:50)
[2022-07-07 03:58] VITALS: PULSE 80; RESP 16
== END 2022-07-07 03:59 | disposition home or self-care (01) ==
PROVIDERS: Emergency Provider Emergency Medicine; PCP Nurse Practitioner Primary Care; Visit Provider Emergency Medicine
DX: N39.0 Urinary tract infection, site not specified (principal)
CPT/HCPCS: 81001; 81025; 87077; 87086; 87088; 87186; 99283

== ENCOUNTER → 2022-11-14 | Outpatient (CLI) | payer OTHER, SELFPAY ==
[2022-11-14 09:04] LABS: hCG Titer Quant., Serum 31952 mIU/mL (1-3)
== END | disposition home or self-care (01) ==
LOC: PAVLAB 08:09
PROVIDERS: PCP Nurse Practitioner Primary Care; Referring Provider Obstetrics & Gynecology; Visit Provider Obstetrics & Gynecology
DX: O20.0 Threatened abortion (principal); Z3A.00 Weeks of gestation of pregnancy not specified
CPT/HCPCS: 36415; 84702

== ENCOUNTER → 2022-11-16 | Outpatient (CLI) | payer OTHER, SELFPAY ==
--- NOTE | 2022-11-16 16:17 | US_ITS ---
STUDY: FIRST TRIMESTER OBSTETRICAL ULTRASOUND REASON FOR EXAM: Female, 27 years old well being LMP: TECHNIQUE: Transvaginal TECHNICAL QUALITY: Adequate. PRIOR ULTRASOUND: None. FINDINGS: There is visualization of a single gestational sac in a normal intrauterine position. The mean sac diameter (MSD) measures 1.78 cm, indicating an estimated gestational age (EGA) of 6 weeks, 5 days. The gestational sac shape is within normal limits. There is a visualized yolk sac. The yolk sac measures 3.5 mm. The placenta is non-visualized. There is visualization of a live embryo. The crown-rump length (CRL) measures 7.7 mm, indicating an estimated gestational age (EGA) of 6 weeks, 6 days. There is demonstrated cardiac activity with a heart rate of 120 bpm. Small subchorionic bleed measuring 8 x 5 x 8 mm The estimated gestation age (EGA) by LMP is 6 weeks, 6 days. The estimated date of delivery (KHAI) by LMP is July 06, 2023. The estimated gestation age (EGA) by US is 6 weeks, 6 days. The estimated date of delivery (KHAI) by US is July 06, 2023. The uterus measures 10.1 x 6.5 x 4.7 cm. There is no demonstrated uterine fibroid. The cervix is closed. The right ovary measures 4.1 x 2.8 x 2.4 cm. Small cyst measuring 2.6 x 2 cm likely corpus luteum. There is no visualized right adnexal mass or complex lesion. The left ovary measures 2.6 x 1.8 x 1.5 cm. There is no left ovarian cyst. There is no visualized left adnexal mass or complex lesion. There is no fluid in the cul de sac. US/Transvaginal w/Preg US IMPRESSION: Viable intrauterine gestation approximately 7 weeks gestational age with small subchorionic hemorrhage. Small right ovarian cyst likely corpus luteum Electronically Signed: Beck Rees MD at 17:32 EDT ,
== END | disposition home or self-care (01) ==
LOC: US 16:16
PROVIDERS: PCP Nurse Practitioner Primary Care; Referring Provider Obstetrics & Gynecology; Visit Provider Obstetrics & Gynecology
DX: O20.9 Hemorrhage in early pregnancy, unspecified (principal); Z3A.00 Weeks of gestation of pregnancy not specified
CPT/HCPCS: 76817

== ENCOUNTER → 2022-11-29 | Outpatient (CLI) | payer OTHER, SELFPAY ==
[2022-12-02 14:16] LABS: Chlamydia By Nucleic Acid AMP Negative (Negative); Gonococcus By Nucleic Acid AMP Negative (Negative)
[2022-12-05 22:08] LABS: HPV Reflexed? NOT INDICATED
== END | disposition home or self-care (01) ==
LOC: LABSPEC 15:14
PROVIDERS: PCP Nurse Practitioner Primary Care; Referring Provider Registered Nurse; Visit Provider Registered Nurse
DX: O09.91 Supervision of high risk pregnancy, unspecified, first trimester (principal)
CPT/HCPCS: 87086; 87491; 87591; 88175; G0145

== ENCOUNTER → 2022-12-12 | Outpatient (CLI) | payer OTHER, SELFPAY ==
[2022-12-12 08:56] LABS: Absolute Lymphocyte Count 2.18 X10^3/uL (0.83-4.51); Absolute Neutrophil Count 4.1 X10^3/uL (2.0-7.7); Basophil# 0.02 X10^3/uL; Basophil% 0.3 % (0-1); Eosinophil# 0.06 X10^3/uL; Eosinophils% 0.9 % (0-5); Hematocrit 40.5 % (37-47); Hemoglobin 13.5 g/dL (12.0-15.0); Lymphocyte # 2.18 X10^3/ul (0.83-4.51); Mean Corp Hgb Conc 33.3 g/dL (32-36); Mean Corpuscular Hgb 30.3 pg (27.0-32.0); Mean Corpuscular Volume 90.8 fL (81-99); Mean Platelet Vol. 10.5 fl (6.2-12.0); Monocyte% 5.9 % (0-10); NRBC Flagged by Analyzer 0 % (0-5); Neutrophil # 4.13 X10^3/uL (2.7-7.7); Neutrophil % 60.6 % (47-70); Platelet Count 206 K/mm3 (150-450); RBC Distribution Width CV 11.9 % (11.6-14.6); RBC Distribution Width SD 39.6 fl (35.1-43.9); Red Blood Count 4.46 M/mm3 (4.2-5.4); White Blood Count 6.8 K/mm3 (4.4-11.0)
[2022-12-12 09:43] LABS: NATERA MAILED SPECIMEN
[2022-12-12 10:11] LABS: HIV - WCH Non-Reactive (Nonreactive); Hepatitis B Surface Antigen Non-Reactive (Nonreactive); Hepatitis C Antibody Non-Reactive (Nonreactive); Rubella IgG Reactive (Nonreactive); Syphilis Antibodies Non-reactive
== END | disposition home or self-care (01) ==
PROVIDERS: PCP Nurse Practitioner Primary Care; Referring Provider Registered Nurse; Visit Provider Registered Nurse
DX: Z34.81 Encounter for supervision of other normal pregnancy, first trimester (principal)
CPT/HCPCS: 36415; 85025; 86703; 86762; 86780; 86803; 86850; 86900; 86901; 87340

== ENCOUNTER → 2023-03-15 | Outpatient (CLI) | payer OTHER, SELFPAY ==
[2023-03-15 11:17] LABS: Absolute Lymphocyte Count 1.79 X10^3/uL (0.83-4.51); Absolute Neutrophil Count 7.4 X10^3/uL (2.0-7.7); Basophil# 0.06 X10^3/uL; Basophil% 0.6 % (0-1); Eosinophil# 0.05 X10^3/uL; Eosinophils% 0.5 % (0-5); Hematocrit 39.3 % (37-47); Hemoglobin 12.6 g/dL (12.0-15.0); Lymphocyte # 1.79 X10^3/ul (0.83-4.51); Lymphocyte % 17.4 % (19-41); Mean Corp Hgb Conc 32.1 g/dL (32-36); Mean Corpuscular Hgb 30.1 pg (27.0-32.0); Mean Platelet Vol. 9.9 fl (6.2-12.0); Monocyte# 0.84 X10^3/uL; Monocyte% 8.2 % (0-10); NRBC Flagged by Analyzer 0 % (0-5); Neutrophil # 7.42 X10^3/uL (2.7-7.7); Neutrophil % 72.3 % (47-70); Platelet Count 190 K/mm3 (150-450); RBC Distribution Width CV 12.9 % (11.6-14.6); RBC Distribution Width SD 44.2 fl (35.1-43.9); Red Blood Count 4.18 M/mm3 (4.2-5.4); White Blood Count 10.3 K/mm3 (4.4-11.0)
[2023-03-15 11:31] LABS: ALB/GLOB Ratio 0.7 RATIO (0.9-2.4); AST(SGOT) 11 U/L (15-37); Alanine Aminotransfer ALT/SGPT 20 U/L (13-56); Albumin, Serum 2.8 g/dL (3.2-5.0); Alkaline Phosphatase 80 U/L (45-117); Anion Gap 7 (5-15); BUN 9 mg/dL (7-18); BUN/Creat Ratio 17.5 RATIO (10-20); Calcium,Total 9.1 mg/dL (8.5-10.1); Chloride 109 mmol/L (98-107); Creatinine, Serum 0.51 mg/dL (0.55-1.02); EST Glomerular Filtration Rate 154 mL/min (>60); Est Glom Filt Rate - Afr Amer 186 mL/min (>60); Globulin 4.2 g/dL (2.2-4.2); Glucose 74 mg/dL (74-106); Potassium 3.8 mmol/L (3.5-5.1); Sodium Level 139 mmol/L (136-145)
--- OUTSIDE RECORDS SUMMARY | 2023-03-15 12:42 | XMS RPT_ITS | CCD ---
Author Name Unknown Address [address] [place] [address] Organization [facility] Care Team Providers Care Occupational Health Physiotherapist Name Role Phone REFERRING, CINDY ALLISON ID Unavailable Unavailable FLORENCIA CHRIS Unavailable Unavailable FLORENCIA CHRIS Unavailable Unavailable DOT DISABILITY CASE MANAGER-FLORENCIA BLANCAS Primary Care Physicia n NO PRIMARY CAREMD Primary Care Unavailable JOSSIE MONTES Referring Unavailab GERDA Mendez Attending Unavailable Allergies Allergy Classification Reported Allergen(s) Allergy Type Date of Onset Reaction(s) Facility (3 sources) Adhesive Tape Allergy to substance [facility] Work Phone: (3 sources) Albumin Human, CORRECTION; Translations: [albumin human] Drug Allergy [facility] Work Phone: (3 sources) Latex Allergy to substance [facility] Work Phone: (3 sources) predniSONE; Translations: [prednisone] Drug Allergy [facility] Work Phone: (3 sources) Promethazine; Translations: [promethazine] Drug Allergy kidney problem, [facility] Work Phone: Medications Current Medications Medication Drug Class(es) Dates Sig (Normalized) Sig (Original) albuterol MDI (90 mcg/inh) CFC free inhalation aerosol (3 sources) Start: 02-20-2020 take 2 puff(s) by inhalation every four hours as needed for wheezing albuterol MDI (90 mcg/inh) CFC free inhalation aerosol 2 puff(s), Inhalation, q4h, PRN Shortness of breath or wheezing, use with spacer chamber, # 1 EA, 0 Refill(s), Pharmacy: [facility]/pharmacy #[id number], 155, cm, 02/20/20 14:39:00 EST, Height, kg, 02/20/20 14:39:00 EST, Dosing Weight Start Date: 02/20/20 Status: Ordered Multivitamins (3 sources) Start: 01-12-2020 take 1 tablet by mouth once daily Multivitamins Dose = 1 tab(s), Oral, qDay, 0 Refill(s) Start Date: 01/12/20 Status: Ordered Problems Active Problems Problem Classification Problem Date Documented Da te Episodic/Chronic Asthma (3 sources) Asthma 09-17-2019 Chronic Genitourinary symptoms and ill-defined conditions (3 sources) Urinary symptoms 01-12-2020 Episodic Other upper respiratory infections (3 sources) Upper respiratory infection 09-17-2019 Episodic Spondylosis; intervertebral disc disorders; other back problems (3 sources) Low back pain 04-27-2020 Episodic Unclassified (3 sources) Exposure to 2019 novel coronavirus 02-20-2020 Past or Other Problems Problem Classification Problem Date Documented Da te Episodic/Chronic Urinary tract infections (2 sources) Urinary tract infection, site not specified; Translations: [URINARY TRACT INFECTION, SITE NOT SPECIFIED] Onset: 08-30-2016 Episodic Results Test Name Value Interpretation Reference Range Facil ity Encounters Encounter Date Encounter Type Care Provider Facility Start: 02-12-2023 End: 02-12-2023 ambulatory PRIMARY CARE [place] Start: 03-07-2021 End: 03-07-2021 Patient encounter procedure [place] WETZEL APRN-CONFERENCE ASSISTANT [facility] Start: 03-03-2021 End: 03-03-2021 Patient encounter procedure [place] WETZEL APRN-CONFERENCE ASSISTANT [facility] Start: 02-28-2021 End: 02-28-2021 Patient encounter procedure HARIKA ALMONTE MD [facility] Start: 08-30-2016 End: 08-31-2016 Ambulatory PHY WO ID REFERRING Facility:[facility] [place] Procedures Date Procedure Procedure Detail Performing Clinician Hip joint structure (body structure) HARIKA ALMONTE MD Payers Date Payer Category Payer Unknown [id number] 1997 Unknown [id number] Private Health Insurance [id number] Social History Date Type Detail Facility Start: 02-13-2019 Never smoked t obacco (finding) [facility] Sex Assigned At Female [facility] Evaluation + Plan note 04-27-2020 Radiology Note Date & Type Note Facility 04-27-2020 Evaluation + Plan note Future Scheduled TestsXR Spine Lumbar AP/LAT 04/27/20 [facility] Hospital course Narrative Note Date & Type Note Facility Hospital course Narrative No data available for this section [facility] Hospital Discharge instructions Note Date & Type Note Facility Hospital Discharge instructions No data available for this section [facility] Summary Purpose Family History No Family History Records FoundNo Family History Records FoundNo Family History Records FoundNo Family History Records Found Advance Directives No Advanced Directives Records FoundNo Advanced Directives Records FoundNo Advanced Directives Records FoundNo Advanced Directives Records Found Additional Source Comments INFORMATION SOURCE (unrecogn ized section and content) DATE CREATED AUTHOR AUTHOR'S ORGANIZ ATION 02/02/2021 [facility] DATE CREATED AUTHOR AUTHOR'S ORGANIZ ATION 03/08/2021 [facility] ([place]) DATE CREATED AUTHOR AUTHOR'S ORGANIZ ATION 02/14/2023 [place] FOR RECORDS PERTAINING TO PATIENTS WHO ARE OR HAVE BEEN ENROLLED IN A CHEMICAL DEPENDENCY/SUBSTANCEABUSE PROGRAM, SOME INFORMATION MAY BE OMITTED. This clinical summary was aggregated from multiple sources. Caution should be exercised in using it in the provision of clinical care. This summary normalizes information from multiple sources, and as a consequence, information in this document may materially change the coding, format and clinical context of patient data. In addition, data may be omitted in some cases. CLINICAL DECISIONS SHOULD BE BASED ON THE PRIMARY CLINICAL RECORDS. [facility] [employer] [facility]. provides no warranty or guarantee of the accuracy or completeness of information in this document.
== END | disposition home or self-care (01) ==
PROVIDERS: PCP Nurse Practitioner Primary Care; Referring Provider Obstetrics & Gynecology; Visit Provider Obstetrics & Gynecology
DX: L29.9 Pruritus, unspecified (principal)
CPT/HCPCS: 36415; 80053; 85025

== ENCOUNTER → 2023-04-13 | Outpatient (CLI) | payer OTHER, SELFPAY ==
[2023-04-13 10:25] LABS: Absolute Lymphocyte Count 2.06 X10^3/uL (0.83-4.51); Absolute Neutrophil Count 9.3 X10^3/uL (2.0-7.7); Basophil# 0.05 X10^3/uL; Basophil% 0.4 % (0-1); Eosinophils% 0.8 % (0-5); Hematocrit 38.5 % (37-47); Hemoglobin 12.8 g/dL (12.0-15.0); Lymphocyte # 2.06 X10^3/ul (0.83-4.51); Lymphocyte % 16.6 % (19-41); Mean Corp Hgb Conc 33.2 g/dL (32-36); Mean Corpuscular Hgb 31.2 pg (27.0-32.0); Mean Corpuscular Volume 93.9 fL (81-99); Mean Platelet Vol. 10.2 fl (6.2-12.0); Monocyte# 0.72 X10^3/uL; Monocyte% 5.8 % (0-10); NRBC Flagged by Analyzer 0 % (0-5); Neutrophil # 9.32 X10^3/uL (2.7-7.7); Platelet Count 156 K/mm3 (150-450); RBC Distribution Width CV 13.1 % (11.6-14.6); RBC Distribution Width SD 44.2 fl (35.1-43.9); White Blood Count 12.4 K/mm3 (4.4-11.0)
--- OUTSIDE RECORDS SUMMARY | 2023-04-13 10:32 | XMS RPT_ITS | CCD ---
Author Name Unknown Address [address] [place] [address] Organization [facility] Care Team Providers Care Fountain Pen Nibs Inspector Name Role Phone REFERRING, CINDY ALLISON ID Unavailable Unavailable FLORENCIA CHRIS Unavailable Unavailable FLORENCIA CHRIS Unavailable Unavailable DOT RETAIL INVENTORY CONTROL CLERK-FLORENCIA BLANCAS Primary Care Physicia n NO PRIMARY CAREMD Primary Care Unavailable JOSSIE MONTES Referring Unavailab GERDA Mendez Attending Unavailable Allergies Allergy Classification Reported Allergen(s) Allergy Type Date of Onset Reaction(s) Facility (3 sources) Adhesive Tape Allergy to substance [facility] Work Phone: (3 sources) Albumin Human, RESIDENTIAL; Translations: [albumin human] Drug Allergy [facility] Work Phone: (3 sources) Latex Allergy to substance [facility] Work Phone: (3 sources) predniSONE; Translations: [prednisone] Drug Allergy [facility] Work Phone: (3 sources) Promethazine; Translations: [promethazine] Drug Allergy kidney problem, [facility] Work Phone: Medications Current Medications Medication Drug [...] chamber, # 1 EA, 0 Refill(s), Pharmacy: [facility]/pharmacy #[id number], 155, cm, 02/20/20 14:39:00 EST, Height, [...] Start: 02-12-2023 End: 02-12-2023 ambulatory PRIMARY CARE [facility] Start: 03-07-2021 End: 03-07-2021 Patient encounter procedure [place] WETZEL APRN-PROMOTIONAL ADVERTISING ASSISTANT [facility] Start: 03-03-2021 End: 03-03-2021 Patient encounter procedure [place] WETZEL APRN-PROMOTIONAL ADVERTISING ASSISTANT [facility] Start: 02-28-2021 End: 02-28-2021 Patient encounter procedure HARIKA ALMONTE MD [facility] Start: 08-30-2016 End: 08-31-2016 Ambulatory PHY WO ID REFERRING Facility:[facility] [place] Procedures Date Procedure Procedure Detail Performing Clinician Hip joint structure (body structure) HARIKA ALMONTE MD Payers Date Payer Category Payer Unknown [id number] 1995 Unknown [id number] Private Health Insurance [id number] Social History Date Type Detail Facility Start: 02-13-2019 Never smoked t obacco (finding) [facility] Sex Assigned At Female [facility] Evaluation + Plan note 04-27-2020 Radiology Note Date & Type Note Facility 04-27-2020 Evaluation + Plan note Future Scheduled TestsXR Spine Lumbar AP/LAT 04/27/20 [facility] Hospital course Narrative Note Date & Type Note Facility Hospital course Narrative No data available for this section [facility] Hospital Discharge instructions Note Date & Type Note Facility Hospital Discharge instructions No data available for this section [facility] Summary Purpose Family History No Family History Records FoundNo Family History Records FoundNo Family History Records FoundNo Family History Records Found Advance Directives No Advanced Directives Records FoundNo Advanced Directives Records FoundNo Advanced Directives Records FoundNo Advanced Directives Records Found Additional Source Comments INFORMATION SOURCE (unrecogn ized section and content) DATE CREATED AUTHOR AUTHOR'S ORGANIZ ATION 02/02/2021 [facility] DATE CREATED AUTHOR AUTHOR'S ORGANIZ ATION 03/08/2021 [facility] ([place]) DATE CREATED AUTHOR AUTHOR'S ORGANIZ ATION 02/14/2023 [facility] FOR RECORDS PERTAINING TO PATIENTS WHO ARE [...] BE BASED ON THE PRIMARY CLINICAL RECORDS. [facility] [employer] [facility]. provides no warranty or guarantee of the accuracy or completeness of information in this document.
[2023-04-13 10:54] LABS: Glucose Challenge Gest 1H 50g 91 mg/dL (70-140)
[2023-04-13 11:19] LABS: HIV - WCH Non-Reactive (Nonreactive); Syphilis Antibodies Non-reactive
== END | disposition home or self-care (01) ==
LOC: LAB 09:45
PROVIDERS: PCP Nurse Practitioner Primary Care; Referring Provider Obstetrics & Gynecology; Visit Provider Obstetrics & Gynecology
DX: Z13.1 Encounter for screening for diabetes mellitus (principal); Z3A.25 25 weeks gestation of pregnancy
CPT/HCPCS: 36415; 82950; 85025; 86703; 86780

== ENCOUNTER → 2023-06-08 | Outpatient (CLI) | payer OTHER, SELFPAY | END | disposition home or self-care (01) | PROVIDERS: PCP Nurse Practitioner Primary Care; Referring Provider Obstetrics & Gynecology; Visit Provider Obstetrics & Gynecology | DX: Z34.90 Encounter for supervision of normal pregnancy, unspecified, unspecified trimester (principal) | CPT/HCPCS: 87081 ==

== ENCOUNTER 2023-06-27 00:16 | Inpatient (IN) | payer OTHER, SELFPAY ==
[2023-06-26 23:49] VITALS: BMI 32.1
[2023-06-26 23:56] VITALS: BP 133/84; PULSE 90; RESP 16; TEMP 36.8; O2SAT 91
[2023-06-26 23:57] VITALS: PULSE 96; O2SAT 96
[2023-06-27] VITALS (85 sets, daily range): BP systolic 89–163; BP diastolic 50–84; PULSE 91–133; RESP 16–20; TEMP 36.4–37.6; O2SAT 79–99
[2023-06-27 06:43] LABS: Absolute Lymphocyte Count 2.85 X10^3/uL (0.83-4.51); Absolute Neutrophil Count 8.9 X10^3/uL (2.0-7.7); Basophil# 0.06 X10^3/uL; Basophil% 0.5 % (0-1); Eosinophil# 0.15 X10^3/uL; Eosinophils% 1.2 % (0-5); Hematocrit 38.4 % (37-47); Lymphocyte # 2.85 X10^3/ul (0.83-4.51); Mean Corp Hgb Conc 33.9 g/dL (32-36); Mean Corpuscular Hgb 30.6 pg (27.0-32.0); Mean Corpuscular Volume 90.4 fL (81-99); Mean Platelet Vol. 11.5 fl (6.2-12.0); Monocyte% 6.9 % (0-10); NRBC Flagged by Analyzer 0 % (0-5); Neutrophil # 8.88 X10^3/uL (2.7-7.7); Neutrophil % 68.6 % (47-70); Platelet Count 133 K/mm3 (150-450); RBC Distribution Width CV 12.8 % (11.6-14.6); RBC Distribution Width SD 41.5 fl (35.1-43.9); Red Blood Count 4.25 M/mm3 (4.2-5.4)
[2023-06-27 06:47] LABS: Syphilis Antibodies Nonreactive
[2023-06-27] MEDS: Lactated Ringers 1,000 ML 200 ML IV ×2 (07:25→13:51)
--- NOTE | 2023-06-27 07:55 | HP.PCM.OB_ITS ---
HPI - General General Date of Admission: 06/27/23 HPI Narrative RONALD MOHAN, is a 28 y/o @ 38 weeks 5 days who presents to L&D in early labor at 10 pm last night. she made slow cervical change and is starting to becoming more uncomfortable .She consents to AROM and wants and epidural soon. Maternal Data Information KHAI Calculator Estimated Delivery Date Method Current WG Current Estimate 07/06/23 LMP (Certain) 38w 5d Other Estimates 07/05/23 Ultrasound #1 38w 6d PFSH PFSH Medical History Acute kidney failure History of blood transfusion Infertility Vaginal delivery Home Medications vit,calcium no.40-iron fum 27 mg iron-folate no.1 1 mg tablet (PNV- Select) tab PO 11/29/22 [History Last Taken Unknown] Allergy/AdvReac Type Severity Reaction Status Date / Time prednisone Allergy Unknown kidney Verified 06/27/23 00:36 failure as child albumin colloid, human Allergy Itching Verified 06/27/23 00:36 [Albumin Colloid, Human] promethazine HCl Allergy Itching Verified 06/27/23 00:36 [From Phenergan] morphine AdvReac HALLUCINATI Verified 06/27/23 00:36 ONS Surgical History History of hip surgery Social History household members: spouse and family pets and animals: Yes pets and animals: cat(s) and dog(s) Smoking Status: Never smoker second hand exposure: No alcohol intake: never substance use type: does not use caffeine: Yes what type of physical activity do you participate in: none deyanira/protestant: Catholic seatbelt use: always do you feel safe at home: Yes additional social history: [employer] Patient works for [employer] in [employer] de[employer]. History 2 Elective abortions Hx Para 1 Spontaneous abortions Hx # Term Pregnancies Ectopic pregnancies Hx # Pregnancies Multiple births # of living children 1 Past Pregnancies Del. Date Name GA/Weeks Outcome Route Bth Weight Gen Labor Lgth Anesthesia Del Locatn Provider FOB 11/11/212021 Pays[place] (boy) 40 live - full term 7lbs 1 3oz Male epidur al [facility] Sonido Delivery Date: 11/11/21 Last Updated by: Gisselle Webb 40w IAL SROM Visit Details Expected Delivery Route/Plan Labor Preferences- CB/BF classes: no labor support person: Sonido labor intervention preferences: [] pain management options preferred: [] cut cord/dad catch: yes : yes PP control planned: [] discussed possible routes of delivery and associated risks: [] special requests: [] Plans Covid status: declined Flu vaccine: declined Tdap vaccine: declines Rhogam: NA LARC form signed: declined movement and labor precautions reviewed. Problem list reviewed and updated with the most current plan of care details and appropriate orders placed. Relevant counseling for the gestational age provided. Continue routine care and follow up unless otherwise noted in visit notes/problem list details OB Flowsheet Initial Weight: 138 lb Date -?-?-?-?-?-?-?-?-?-?-?-?- EGA Weight BP Urine Prot -?-?-?-?-?-?-?-?-?-?-?-?- Glucose FHR FuHt Pres Dilation -?-?-?-?-?-?-?-?-?-?-?-?- Effaced St Visit Note 11/29/22 -?-?-?-?-?-?-?-?-?-?-?-?- 8w 5d 138 lb 6 oz (+6 oz) 108/70 -?-?-?-?-?-?-?-?-?-?-?-?- 168 -?-?-?-?-?-?-?-?-?-?-?-?- LC- CRL con with LMP. KHAI 07/06/2023. accept nipt. 12/25/22 -?-?-?-?-?-?-?-?--?-?-?-?- 12w 3d 136 lb 2 oz (-1 lb 14 oz) 115/72 Negative -?-?-?-?-?-?-?-?-?-?-?-?- Negative 153 -?-?-?-?-?-?-?-?-?-?-?-?- -No VB. Nausea improving. Brief US to confirm live IUP 01/18/23 -?-?-?-?-?-?-?-?-?-?-?-?- 15w 6d 137 lb 6 oz (-10 oz) 99/69 -?-?-?-?-?-?-?-?-?-?-?-?- 140 -?-?-?-?-?-?-?-?-?-?-?-?- - no vb lof cr maping 02/14/23 -?-?-?-?-?-?-?-?-?-?-?-?- 19w 5d 143 lb (+5 lb) 82/56 -?-?-?-?-?-?-?-?-?-?-?-?- 150 -?-?-?-?-?-?-?-?-?-?-?-?- JV- no complaint s. patient's anatomy scan was normal. it's a BOY! 03/15/23 -?-?-?-?-?-?-?-?-?-?-?-?- 23w 6d 148 lb (+10 lb) 100/80 Negative -?-?-?-?-?-?-?-?-?-?-?-?- Negative 145 24 -?-?-?-?-?-?-?-?-?-?-?-?- - no vb lof go od fm n oregular ctx co itching in hadns and feet expecially at night ordered labs co reflux 03/29/23 -?-?-?-?-?-?-?-?-?-?-?-?- 25w 6d 150 lb (+12 lb) 104/62 Negative -?-?-?-?-?-?-?-?-?-?-?-?- Negative 154 -?-?-?-?-?-?-?-?-?-?-?-?- -work in for p ainful bleeding hemorrhoid. See exam. Baby active. No VB. 04/13/23 -?-?-?-?-?-?-?-?-?-?-?-?- 28w 0d 154 lb 6 oz (+16 lb 6 oz) 117/71 Negative -?-?-?-?-?-?-?-?-?-?-?-?- Negative 155 29 -?-?-?-?-?-?-?-?-?-?-?-?- KW-no vb/lof/ctx . good fm. having heart palpitations multiple times throughout the day over the last week. EKG and Cardiology consult placed. KW-no vb/lof/ctx. good fm. h aving heart palpitations multiple times throughout the day over the last week. EKG and Cardiology consult placed. passed 28 week labs 04/23/23 -?-?-?-?-?-?-?-?-?-?-?-?- 29w 3d 160 lb (+22 lb) 116/73 Negative -?-?-?-?-?-?-?-?-?-?-?-?- Negative 140 30 -?-?-?-?-?-?-?-?-?-?-?-?- SM- no vb lof go od fm no regular ctx. palpitations resolving. SM- no vb lof good fm no reg ular ctx. palpitations resolving. larc signed 05/07/23 -?-?-?-?-?-?-?-?-?-?-?-?- 31w 3d 161 lb 8 oz (+23 lb 8 oz) 121/82 Negative -?-?-?-?-?-?-?-?-?-?-?-?- Negative 145 32 -?-?-?-?-?-?-?-?-?-?-?-?- JV- pt cancelled her holter monitor today because is feeling better. no palpitations x 2 weeks. plan to check position next visit. 05/23/23 -?-?-?-?-?-?-?-?-?-?-?-?- 33w 5d 165 lb 2 oz (+27 lb 2 oz) 115/74 Negative -?-?-?-?-?-?-?-?-?-?-?-?- Negative 140 33 Cephalic -?-?-?-?-?-?-?-?-?-?-?-?- LC-no vb/ctx/lof good fm. no concerns. vtx on handheld us 06/08/23 -?-?-?-?-?-?-?-?-?-?-?-?- 36w 0d 167 lb (+29 lb) 126/80 Trace -?-?-?-?-?-?-?-?-?-?-?-?- Negative 149 37 Cephalic 1 .5 -?-?-?-?-?-?-?-?-?-?-?-?- 0 -3 JV- no lof , vaginal bleeding, or cramping. starting to have contractions. 06/13/23 -?-?-?-?-?-?-?-?-?-?-?-?- 36w 5d 171 lb 2 oz (+33 lb 2 oz) 110/68 Negative -?-?-?-?-?-?-?-?-?-?-?-?- Negative 138 37 -?-?-?-?-?-?-?-?-?-?-?-?- MH-No VB, LOF. I rreg BH CTX. Declines internal exam. Good FM. GBS negative 06/19/23 -?-?-?-?-?-?-?-?-?-?-?-?- 37w 4d 170 lb (+32 lb) 122/81 Negative -?-?-?-?-?-?-?-?-?-?-?-?- Negative 135 39 Cephalic 3 -?--?-?-?-?-?-?-?-?-?-?-?- 50 -2 kw- no vb/ lof/ctx. good fm. labor precautions reviewed ROS Constitutional Constitutional: Denies change in weight, fatigue, fever(s), headache(s), poor appetite or weakness Eyes Eyes: Denies blurry vision, change in vision, seeing flashes or spots in vision ENT HEENT: Denies dizziness, headache(s), loss taste/smell or sore throat Cardiovascular Cardiovascular: Denies chest pain, dizziness, dyspnea, irregular heart rhythm, leg edema, palpitations, rapid heart rate or vomiting Respiratory/Chest Respiratory/Chest: Denies chest tightness, cough, dyspnea or breast pain Gastrointestinal Gastrointestinal: Denies abdominal pain, anorexia, constipation, cramping, diarrhea, hemorrhoids, vomiting or weight changes Genitourinary Genitourinary: Denies dysuria, flank pain, genital lesions, genital pain, urinary frequency or urinary urgency Musculoskeletal Musculoskeletal: Denies back pain, difficulty walking, joint pain, limited range of motion, muscle cramps or numbness Integumentary Integumentary: Denies lesions or unusual bruising Neurologic Neurologic: Denies abnormal movements, abnormal speech, dizziness, numbness, seizure-like activity or syncope Psychiatric Psychiatric: Denies anxiety, behavioral changes, change in appetite, change in libido, cognitive impairment, confusion, depression, difficulty concentrating, hallucinations or suicidal thoughts Endocrine Endocrinology: Denies excessive sweating, polydipsia or polyuria Hematologic/Lymphatic Hematologic/Lymphatic: Denies easy bleeding, easy bruising or lymphadenopathy Allergic/Immunologic Allergic/Immunologic: Denies itchy eyes, lip swelling, seasonal rhinorrhea, rhinitis, throat swelling, tongue swelling, eczemia, wheezing or asthma Vital Signs Vital Signs Vital Signs: 06/26/23 23:56 06/26/23 23:56 06/26/23 23:56 Temperature Temperature Source Pulse Rate 90 Respiratory Rate Blood Pressure 133/84 H BP Systolic 133 BP Diastolic 84 Pulse Ox 91 06/26/23 23:57 06/26/23 23:57 06/26/23 23:56 Temperature Temperature Source Temporal Pulse Rate 96 Respiratory Rate Blood Pressure BP Systolic BP Diastolic Pulse Ox 96 06/26/23 23:56 06/26/23 23:56 06/27/23 02:53 Temperature 98.2 F Temperature Source Pulse Rate Respiratory Rate 16 Blood Pressure 119/82 H BP Systolic 119 BP Diastolic 82 Pulse Ox 06/27/23 02:53 06/27/23 02:54 06/27/23 02:53 Temperature Temperature Source Temporal Pulse Rate 94 98 Respiratory Rate Blood Pressure BP Systolic BP Diastolic Pulse Ox 06/27/23 02:54 06/27/23 02:53 06/27/23 02:54 Temperature 97.9 F Temperature Source Pulse Rate Respiratory Rate 16 Blood Pressure BP Systolic BP Diastolic Pulse Ox 97 06/27/23 04:56 06/27/23 04:56 06/27/23 04:56 Temperature Temperature Source Temporal Pulse Rate 93 Respiratory Rate Blood Pressure 117/61 BP Systolic 117 BP Diastolic 61 Pulse Ox 06/27/23 04:56 06/27/23 04:56 06/27/23 04:56 Temperature Temperature Source Pulse Rate 98 Respiratory Rate 16 Blood Pressure BP Systolic BP Diastolic Pulse Ox 97 06/27/23 04:56 06/27/23 06:01 06/27/23 06:02 Temperature 98.1 F Temperature Source Temporal Pulse Rate Respiratory Rate Blood Pressure 109/62 BP Systolic 109 BP Diastolic 62 Pulse Ox 06/27/23 06:02 06/27/23 06:01 06/27/23 06:01 Temperature 98.5 F Temperature Source Pulse Rate 97 Respiratory Rate 16 Blood Pressure BP Systolic BP Diastolic Pulse Ox 06/27/23 07:41 06/27/23 07:41 06/27/23 07:40 Temperature Temperature Source Pulse Rate 102 H Respiratory Rate 18 Blood Pressure 129/84 H BP Systolic 129 BP Diastolic 84 Pulse Ox Weight Weight: 170 lb 6.4 oz Body Mass Index (BMI) 32.1 Physical Exam Const alert, oriented x3, no apparent distress and healthy appearing General Appearance: cooperative; Negative for anxious HEENT normocephalic Face and Sinus: normal facial exam Eyes EOMs intact bilaterally and no scleral icterus General Eye: normal appearance of both eyes Neck full ROM and supple Lymph Lymphatic: no lymphadenopathy noted Chest Chest: abnormal inspection of the chest Resp normal respiratory effort Effort and Inspection: able to speak in complete sentences Cardio regular rate GI soft to palpation and non-tender Inspection: gravid Palpation: soft; Negative for tender external exam normal Narrative: cs is 4.5/70/-2, membranes ruptured with clear fluid return. Back/Spine no CVA tenderness Extremity normal to inspection, full ROM and no clubbing, cyanosis or edema General Extremity: Negative for calf tenderness or edema Skin Lesions: no lesions Rashes: no rashes Psych mental status grossly normal Labs Labs Labs: Blood Type O POSITIVE Antibody Screen NEGATIVE Hct 38.4 % (37-47) Hgb 13.0 g/dL (12.0-15.0) Obstetrics Ultrasound Syphilis Total Ab Nonreactive Rubella IgG Antibody Reactive (Nonreactive) Hep Bs Antigen Non-Reactive (Nonreactive) Hepatitis C Antibody Non-Reactive (Nonreactive) Chlamydia DNA (SAKINA) Negative (Negative) N.gonorrhoeae DNA (SAKINA) Negative (Negative) HIV 1&2 Antibody Non-Reactive (Nonreactive) Glucose 1 Hr 50 gm 91 mg/dL (70-140) Rhogam given: No Miscellaneous Test Assessment & Plan (1) Palpitations: COMMENT: Resolved The patient's palpitations are very short-lived and not associated with syncope. She has had some dizziness. These appear to be postprandial primarily. She does have a wearable but is not able to utilize it yet due to it needs to be set up. (2) Hemorrhoid thrombosis: COMMENT: Resolved <1cm. Warm soaks, comp supp at [facility]. (3) Chronic pruritus: COMMENT: Improved. hands and feet, labs ordered. supportive care. norm bile acids. (4) : QUALIFIERS: Weeks of gestation: 37 weeks Qualified Code(s): Z3A .37 - 37 weeks gestation of COMMENT: Neg GBS NIPT low risk, carrier and ntd declined, normal anatomy (5) Supervision of high risk in first trimester: COMMENT: [id number] KHAI 07/06/2023. boy PC: All. :sonido. PLAN: Plan Patient presents IAL, plan expectant management for , pitocin/AROM PRN if needed. Pain management: plans epidural. GBS negative Management of any complications: none I have reviewed the [facility] and made any clinically relevant updates.
[2023-06-27] MEDS: Lactated Ringers 1,000 ML 999 ML IV (09:25)
[2023-06-27] MEDS: fentaNYL-bupivacaine (epidural) 100 ML BAG EPIDURAL (11:00)
[2023-06-27] MEDS: LACTATED RINGERS 500 ML 999 ML IV ×2 (12:05→13:20)
--- NOTE | 2023-06-27 13:07 | PN.OBGYN_ITS ---
Subjective Subjective pt is comfortable with epidural. Pit not on at this time. current tracing: FHT: Moderate variability reactive no decelerations category I tracing [place]: coupling Contractions then q 4-5 min cx: 7/90/-0 head turned to ROP on exam and patient put on her right side with a peanut ball. reviewed tracing abnormalities since last note: no changes A/P: continue with labor management if no change in 2 hours will start pit. Objective Data Objective Data Vital Signs: Vital Signs Temp Pulse Resp BP Pulse Ox 97.6 F L 106 H 16 94/52 L 99 06/27/23 12:55 06/27/23 13:02 06/27/23 12:55 06/27/23 13:02 06/27/23 11:53 Weight: 170 lb 6.4 oz Body Mass Index (BMI) 32.1 Intake & Output: Intake and Output for Last 24 Hours 06/25/23 06/26/23 06/27/23 23:59 23:59 23:59 Intake Total 1400 / 1400 Balance 1400 / 1400 Lab / Micro Data 06/27/23 00:45 Labs: Laboratory Results - last 24 hr 06/27/23 00:45: WBC 13.0 H, RBC 4.25, Hgb 13.0, Hct 38.4, MCV 90.4, MCH 30.6, MCHC 33.9, RDW Std Deviation 41.5, RDW Coeff of Víctor 12.8, Plt Count 133 L, MPV 11.5, Immature Gran % (Auto) 0.800, Neut % (Auto) 68.6, Lymph % (Auto) 22.0, [place] % (Auto) 6.9, Eos % (Auto) 1.2, Baso % (Auto) 0.5, Absolute Neuts (auto) 8.9 H, Absolute Lymphs (auto) 2.85, Nucleated RBC % 0, Syphilis Total Ab Nonreactive, Blood Type O POSITIVE, Antibody Screen NEGATIVE
[2023-06-27] MEDS: Mag Hydrox/Al Hydrox/Simeth 30 ML UDC PO (15:02)
[2023-06-27] MEDS: Oxytocin 10 UNITS/ML Vial IM (15:40)
[2023-06-27] MEDS: Oxytocin 15 Units/NS 250ml 15 UNITS/250 ML IV.SOLN 83 UNITS IV (15:40)
--- NOTE | 2023-06-27 15:53 | OP.PCM_ITS ---
Assessment & Plan (1) Palpitations: COMMENT: Resolved The patient's palpitations are very short-lived and not associated with syncope. She has had some dizziness. These appear to be postprandial primarily. She does have a wearable but is not able to utilize it yet due to it needs to be set up. (2) Hemorrhoid thrombosis: COMMENT: Resolved <1cm. Warm soaks, comp supp at [facility]. (3) Chronic pruritus: COMMENT: Improved. hands and feet, labs ordered. supportive care. norm bile acids. (4) : QUALIFIERS: Weeks of gestation: 37 weeks Qualified Code(s): Z3A.37 - 37 weeks gestation of COMMENT: Neg GBS NIPT low risk, carrier and ntd declined, normal anatomy (5) Supervision of high risk in first trimester: COMMENT: [id number] KHAI 07/06/2023. boy PC: All. :jassi. (6) Active labor at term: Maternal Data Information KHAI Calculator Estimated Delivery Date Method Current WG Current Estimate 07/06/23 LMP (Certain) 38w 5d Other Estimates 07/05/23 Ultrasound #1 38w 6d Final KHAI Source: LMP Gestational age: 38 weeks 5 days Vaginal Delivery Maternal Presentation Maternal Presentation: Active Labor Type of Induction: Amniotomy Operative Information Date of Procedure: 06/27/23 Pre-Operative Diagnosis: 28 y/o @ 38 weeks, active labor Post-Operative Diagnosis: 28 y/o @ 38 weeks, active labor Surgery / Procedure Performed: Spontaneous Vaginal Delivery Type of Anesthesia: Epidural Anesthesiologist: Conor Gutierrez Drain: Archuleta to straight drain Estimated Blood Loss: 300 cc Time of Delivery: 13:35 Findings Description of Procedure: Patient began pushing and delivered the head in the ANDRA presentation. The head was delivered atraumatically and a loose nuchal cord ?1 was identified and easily reduced over the 's head. The anterior and posterior shoulders delivered without complication followed by the rest of the and the was placed on the maternal abdomen. Delayed cord clamping was employed for approximately 60 seconds. Cord was clamped and cut and gentle traction was applied to the cord and the placenta delivered spontaneously immediately following it was noted to be intact with three-vessel cord. The perineum and vagina were inspected and found to have a 1st degree perineal laceration, repaired with a 2-0 vicryl. EBL was 300cc. Patient and tolerated delivery well. Presentation: Vertex Amniotic Membrane Rupture Type: Artificial Time of Membrane Rupture: 7:30 am Amniotic Fluid Description: Clear Placental Delivery Description: Spontaneous Placenta Disposition: [facility] Cord Vessel Description: 3 Vessels Cord Entanglement: Around neck x 1, loose Nuchal Cord Compression: Without compression A Gender: Male (1 minute): 9 (5 minute): 10 Delayed Cord Clamping: Yes Post Vaginal Delivery Medications Given After Delivery: IV Pitocin and IM Pitocin Episiotomy Description: None Laceration: 1st degree Complication Complications: None Multi Select Codes Urinary/Genital Urinary/Genital CPT Codes: 51205 Vaginal Delivery [facility]
--- NOTE | 2023-06-27 15:57 | DCINST_ITS ---
Discharge Instructions Diet Discharge Diet: No restrictions Activity Discharge Activity: Return to Normal Activity, May Not Drive (while taking narcotic pain medications.) and May Shower May resume sexual activity in: 4-6 weeks Dressing / Incision Call your doctor if your incision/area has: Continuous Slow Oozing, Sudden Increased Bleeding, Increased Pain/ Swelling, Increased Redness and Foul Smelling Discharge Follow Up Care Please Follow Up With: Chiqui Soto DO When: Call [phone] to make an appointment with your doctor in 6 weeks. If you had elevated blood pressure or 4th degree laceration, you will need to be seen in 2 weeks. Test Results: Test results from this visit will be discussed in further detail at your follow- up appointment, if applicable. Discharge Plan Admission Admit Date/Time: 06/27/23 00:16 Attending Provider: Marcelina Diallo Primary Care Provider: Reba Hager NP Discharge Orders/Prescriptions Prescriptions: No Action PNV-Select 27-1 mg tablet PO Referrals / Follow Up: Reba Hager NP, [employer] [Primary Care Provider] -
[2023-06-27] MEDS: 0.9% Saline Lock 10 ML Syringe IV (18:56)
--- NOTE | 2023-06-27 20:17 | EKG12_ITS ---
Test Reason : tachycardia Blood Pressure : / mmHG Vent. Rate : 120 BPM Atrial Rate : 120 BPM P-R Int : 188 ms QRS Dur : 078 ms QT Int : 294 ms P-R-T Axes : 067 028 017 degrees QTc Int : 415 ms Sinus tachycardia Otherwise normal ECG No previous ECGs available Confirmed by EH RUBY, SOREN ([id number]), multimedia editor GENEVA CARROLL ([id number]) on 07/02/2023 10:10:30 AM Referred By: Chiqui Soto Confirmed By:VAL STAUFFER MD
[2023-06-27 20:54] LABS: Absolute Lymphocyte Count 1.35 X10^3/uL (0.83-4.51); Absolute Neutrophil Count 10.1 X10^3/uL (2.0-7.7); Basophil# 0.04 X10^3/uL; Basophil% 0.3 % (0-1); Eosinophil# 0.01 X10^3/uL; Eosinophils% 0.1 % (0-5); Hematocrit 38.9 % (37-47); Hemoglobin 12.7 g/dL (12.0-15.0); Lymphocyte # 1.35 X10^3/ul (0.83-4.51); Mean Corp Hgb Conc 32.6 g/dL (32-36); Mean Corpuscular Hgb 30.3 pg (27.0-32.0); Mean Corpuscular Volume 92.8 fL (81-99); Monocyte# 0.67 X10^3/uL; Monocyte% 5.4 % (0-10); NRBC Flagged by Analyzer 0 % (0-5); Neutrophil # 10.13 X10^3/uL (2.7-7.7); Neutrophil % 82.3 % (47-70); Platelet Count 117 K/mm3 (150-450); RBC Distribution Width CV 12.6 % (11.6-14.6); RBC Distribution Width SD 42.5 fl (35.1-43.9); Red Blood Count 4.19 M/mm3 (4.2-5.4); White Blood Count 12.3 K/mm3 (4.4-11.0)
[2023-06-27 21:22] LABS: ALB/GLOB Ratio 0.8 RATIO (0.9-2.4); AST(SGOT) 28 U/L (15-37); Alanine Aminotransfer ALT/SGPT 23 U/L (13-56); Albumin, Serum 2.5 g/dL (3.2-5.0); Alkaline Phosphatase 134 U/L (45-117); Anion Gap 5 (5-15); BUN 6 mg/dL (7-18); BUN/Creat Ratio 8.3 RATIO (10-20); Chloride 111 mmol/L (98-107); Creatinine, Serum 0.72 mg/dL (0.55-1.02); EST Glomerular Filtration Rate 103 mL/min (>60); Est Glom Filt Rate - Afr Amer 125 mL/min (>60); Globulin 3.2 g/dL (2.2-4.2); Glucose 134 mg/dL (74-106); Potassium 3.3 mmol/L (3.5-5.1); Protein, Total 5.7 g/dL (6.4-8.2); Sodium Level 140 mmol/L (136-145)
--- NOTE | 2023-06-27 23:07 | PN.HOSP_ITS ---
Hospitalist Note Called by OB staff to assist with reading patient's EKG from this evening. Patient had a successful vaginal delivery earlier this afternoon at 13:35. Per Dr. Soto's note and nursing staff, patient has done well postdelivery. On review of vitals, patient's heart rate had consistently been in the 90s to low 110s from around midnight til delivery. Since delivery, her heart rate has been more consistently been in the 110s to 120s. Her blood pressure was slightly low around the time of delivery and the 90s over 50s but she has now be en normotensive since delivery. She has had a low-grade temp on several checks today, with highest reading being 99.7F. Labs were drawn this evening around 20:30. Hemoglobin and white count are stable from previous. Platelets are slightly decreased but again similar to previous. Has a slightly low potassium of 3.3, otherwise CMP looks fairly benign. On my read of the EKG, it appears to show sinus tachycardia with rate around 120, otherwise appears fairly normal. Rate is regular, has P waves before every QRS complex with normal HI interval and normal QRS complex, and T waves look normal. On chart review, patient saw cardiology back in April for reported palpitations. Per Dr. Etienne' note, she reported symptoms of dizziness and palpitations at times that were very short-lived and appear to be primarily postprandial. Her heart rate was normal sinus rhythm in the 80s at that time. Plan was to obtain a 48-hour Holter monitor for the patient and to also utilize a wearable Apple Watch to try to capture any events. Per Dr. Soto's note today, appears that patient has not done the Holter yet or gotten the Apple Watch set up yet. At this point, I am unsure on the etiology for patient's persistent tachycardia post delivery. She has had adequate fluid resuscitation. Her vitals are otherwise normal, and labs are fairly benign. Potassium is mildly low but would suspect this would cause ectopy if anything rather than persistent sinus tachycardia. Did not see or examine the patient, but per nursing staff patient has been quite comfortable and does not appear to be in any significant pain or distress. Would recommend monitoring the patient for now and seeing how she does overnight.
[2023-06-28] VITALS (9 sets, daily range): BP systolic 110–125; BP diastolic 57–74; PULSE 81–112; RESP 16; TEMP 36.5–37.4; O2SAT 92–97
--- NOTE | 2023-06-28 07:57 | PN.OBGYN_ITS ---
Subjective Subjective Patient doing well without complaints. Tolerating PO. Ambulating and voiding without difficulty. Feeding well. Denies chest pain, shortness of breath, calf pain/swelling, fevers, chills, lightheadedness. Objective Data Objective Data Vital Signs: Vital Signs Temp Pulse Resp BP Pulse Ox O2 Del Method 99.4 F H 108 H 16 116/59 L 96 Room Air 06/28/23 03:25 06/28/23 03:25 06/28/23 03:25 06/28/23 03:25 06/28/23 03:25 06/28/23 03:25 Oxygen Delivery Method Room Air Weight: 170 lb 6.4 oz Body Mass Index (BMI) 32.1 Intake & Output: Intake and Output for Last 24 Hours 06/26/23 06/27/23 06/28/23 23:59 23:59 23:59 Intake Total 7490.00 / 7490.00 Output Total 2150 / 2150 1000 / 1000 Balance 5340.00 / 5340.00 -1000 / -1000 Lab / Micro Data Attestation: I reviewed the patient's lab results. 06/27/23 20:39 06/27/23 20:39 Labs: Laboratory Results - last 24 hr 06/27/23 20:39: WBC 12.3 H, RBC 4.19 L, Hgb 12.7, Hct 38.9, MCV 92.8, MCH 30.3, MCHC 32.6, RDW Std Deviation 42.5, RDW Coeff of Víctor 12.6, Plt Count 117 L, MPV 11.0, Immature Gran % (Auto) 0.900, Neut % (Auto) 82.3 H, Lymph % (Auto) 11.0 L, Mccracken % (Auto) 5.4, Eos % (Auto) 0.1, Baso % (Auto) 0.3, Absolute Neuts (auto) 10.1 H, Absolute Lymphs (auto) 1.35, Nucleated RBC % 0, Sodium 140, Potassium 3.3 L, Chloride 111 H, Carbon Dioxide 24.0, Anion Gap 5, BUN 6 L, Creatinine 0.72, Estim Creat Clear Calc 111.40, Est GFR (MDRD) Af Amer 125, Est GFR (MDRD) Non-Af 103, BUN/Creatinine Ratio 8.3 L, Glucose 134 H, Calcium 9.0, Total Bilirubin 0.50, AST 28, ALT 23, Alkaline Phosphatase 134 H, Total Protein 5.7 L, Albumin 2.5 L, Globulin 3.2, Albumin/Globulin Ratio 0.8 L ROS Constitutional Constitutional: Reports systems reviewed and no addt'l complaints, except as documented; Denies anorexia or headache(s) Cardiovascular Cardiovascular: Reports systems reviewed and no addt'l complaints, except as documented; Denies dizziness, dyspnea, nausea or tachypnea Respiratory/Chest Respiratory/Chest: Reports systems reviewed and no addt'l complaints, except as documented; Denies cough, dyspnea, shortness of breath at rest or tachypnea Gastrointestinal Gastrointestinal: Reports systems reviewed and no addt'l complaints, except as documented; Denies abdominal pain, constipation or nausea Genitourinary Genitourinary: Reports systems reviewed and no addt'l complaints, except as documented; Denies burning urination, difficulty urinating, dysuria, urinary frequency or urinary incontinence Musculoskeletal Musculoskeletal: Reports systems reviewed and no addt'l complaints, except as documented Integumentary Integumentary: Reports systems reviewed and no addt'l complaints, except as documented Neurologic Neurologic: Reports systems reviewed and no addt'l complaints, except as documented; Denies abnormal speech, dizziness or headache(s) Psychiatric Psychiatric: Reports systems reviewed and no addt'l complaints, except as documented Endocrine Endocrinology: Reports systems reviewed and no addt'l complaints, except as documented Hematologic/Lymphatic Hematologic/Lymphatic: Reports systems reviewed and no addt'l complaints, except as documented Physical Exam Const alert, oriented x3 and no apparent distress Neck full ROM Resp normal respiratory effort, normal air movement and no retractions Effort and Inspection: able to speak in complete sentences and symmetric chest movement GI soft to palpation Bladder / Kidney Exam: bladder normal to palpation Uterus Palpation: uterus fundus Extremity normal to inspection and full ROM Psych mental status grossly normal, thought process normal and cooperative Assessment & Plan (1) Status post normal vaginal delivery: PLAN: s/p PPD # 1 1. routine post delivery care 2. breast feeding- support given 3. rh positive 4. rubella immune 5. Discharge Home Charges/Coding Multi Select Codes Urinary/Genital Urinary/Genital CPT Codes: No Charge
[2023-06-28] MEDS: Ibuprofen 600 MG Tablet PO (14:21)
[2023-06-28] MEDS: Senna/Docusate Sodium 1 Tablet PO (14:21)
== END 2023-06-28 17:00 | disposition home or self-care (01) | DRG 807 ==
LOC: WP 00:46
PROVIDERS: Obstetrics & Gynecology; Admitting Provider Obstetrics & Gynecology; PCP Nurse Practitioner Primary Care; Referring Provider Obstetrics & Gynecology; Visit Provider Obstetrics & Gynecology
DX: O70.0 First degree perineal laceration during delivery (principal); Z37.0 Single live birth; L29.9 Pruritus, unspecified; O69.81X0 Labor and delivery complicated by cord around neck, without compression, not applicable or unspecified; O99.72 Diseases of the skin and subcutaneous tissue complicating childbirth; R00.2 Palpitations; Z3A.38 38 weeks gestation of pregnancy
CPT/HCPCS: 59025; 59050; 80053; 85025; 86780; 86850; 86900; 86901; 93005; 99221; J7120; A4216; G0378

== ENCOUNTER 2025-02-04 09:49 | Emergency (ER) | payer OTHER, SELFPAY ==
[2025-02-04 09:50] VITALS: BP 118/86; PULSE 73; RESP 16; TEMP 36.6; O2SAT 100; BMI 25.4
--- NOTE | 2025-02-04 10:01 | ED.VIS.FALL ---
HPI HPI - Fall History of Present Illness Chief Complaint: Fall Detail of Chief Complaint: Fall with left arm injury Informant: patient Narrative Narrative: Patient presents to the emergency department after sustaining a fall this morning. States she was getting snow off her car when she slipped on the ice and fell onto her left arm. Initially had pain in her wrist and her fingers went numb and got tingly. Since the fall now having more pain in the elbow rather than the wrist. She is right-hand dominant. Patient denies head injury. She denies neck pain chest pain or abdomen pain. She has been ambulatory since the fall. PFSH PFSH Medical History Vaginal delivery Acute kidney failure History of blood transfusion Infertility Home Medications ?Medication ?Instructions ?Recorded ?Last Taken ?Type ondansetron 4 mg disintegrating 4 mg PO Q4H PRN nausea and 10/30/24 Unknown Rx tablet vomiting #60 tabs sertraline 50 mg tablet (Zoloft) 12.5 mg (1/4 x 50 mg) PO DAILY #30 10/30/24 Unknown Rx tabs Allergy/AdvReac Type Severity Reaction Status Date / Time prednisone Allergy Unknown kidney Verified 02/04/25 09:50 failure as child albumin colloid, human Allergy Itching Verified 02/04/25 09:50 (Albumin Colloid, Human) promethazine HCl (From Allergy Itching Verified 02/04/25 09:50 Phenergan) morphine AdvReac HALLUCINATI Verified 02/04/25 09:50 ONS Surgical History History of hip surgery Social History household members: spouse and family number of children: 2 pets and animals: Yes pets and animals: cat(s) and dog(s) Smoking Status: Never smoker second hand exposure: No alcohol intake: never substance use type: does not use caffeine: Yes what type of physical activity do you participate in: none deyanira/scientologist: Orthodoxy seatbelt use: always do you feel safe at home: Yes additional social history: [employer] 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 ROS ROS ED Review of Systems ROS Unobtainable: other Constitutional Constitutional ED: Reports lethargy; Denies chills, fever(s), sweats or weight loss Eyes Eyes: Denies blurry vision, change in vision or diplopia ENT ENT ED: Denies rhinorrhea or sore throat Cardiovascular Cardiovascular: Denies chest pain, orthopnea or racing heartbeat Respiratory/Chest Respiratory/Chest: Denies cough, dyspnea, dyspnea on exertion, orthopnea or sputum Gastrointestinal Gastrointestinal: Denies abdominal pain, diarrhea, nausea or vomiting Genitourinary Genitourinary ED: Denies dysuria, hematuria or urinary frequency Musculoskeletal Musculoskeletal: Reports other Details: Left wrist and left elbow pain ; Denies arthralgias, back pain, myalgias or neck pain Integumentary Denies abscess, Abrasions or rash Neurologic Neurologic: Denies headache(s) or weakness Psychiatric Psychiatric: Denies anxiety, depression or suicidal thoughts Endocrine Endocrinology: Denies polydipsia, polyphagia or polyuria Hematologic/Lymphatic Hematologic/Lymphatic: Denies easy bleeding, easy bruising or lymphadenopathy Allergic/Immunologic Allergic/Immunologic ED: Denies mouth swelling, tongue swelling or urticaria EXAM Physical Exam Const Vital Signs: 02/04/25 09:50 Temperature 97.9 F Temperature Source Temporal Pulse Rate 73 Respiratory Rate 16 Blood Pressure 118/86 H Blood Pressure Mean 96 Pulse Ox 100 Oxygen Delivery Method Room Air Positive well nourished and well developed General Appearance ED: well developed and NAD HEENT Reports TM's clear and moist mucous membranes normocephalic and atraumatic; Negative for trauma or tenderness Tympanic Membrane ED: Yes TM's clear Eyes PERRL and EOMs intact bilaterally General Eye ED: Negative for pale conjunctiva or scleral icterus Neck no lymphadenopathy, supple and no JVD General: Negative for tenderness Chest Wall inspection of chest normal and palpation of chest normal Chest: Negative for tenderness Resp normal respiratory effort and clear to auscultation bilaterally Effort and Inspection: Negative for respiratory distress or pain with movement Auscultation: Negative for rhonchi, wheezes or diminished lung sounds Cardio regular rate, regular rhythm, S1 normal heart sound, S2 normal heart sound and no murmurs Peripheral Pulses: pulses 2+ throughout GI normal to inspection, nondistended, normoactive bowel sounds, soft to palpation, non-tender, non-distended and no masses Back/Spine no CVA tenderness and no thoracic nor lumbar tenderness Extremity Extremity Narrative: Left arm-patient has a mild diffuse tenderness over the wrist/distal radius. There is no ecchymosis or bruising or soft tissue swelling noted. She is neurovascular intact distally. Patient also with tenderness palpation over the distal humerus and proximal forearm. No obvious deformity. Pain with flexion extension and pronation and supination at the elbow. No tenderness to the left shoulder. General Extremety ED: Negative for edema General Extremity: Negative for edema Neuro oriented x3, CN's II-XII intact bilaterally, no sensory deficits noted and gait normal Sensorium / Orientation: awake, alert, oriented to person, oriented to place and oriented to time Motor Exam: strength 5/5 throughout and strength abnormal Psych mental status grossly normal Skin no rashes or lesions noted and no wounds MDM MDM Radiography Diagnostic Testing: Three-view x-ray of the left wrist obtained interpreted by myself as no evidence of fracture or dislocation. Three-view x-rays of the left elbow obtained interpreted by myself as minimally displaced radial head fracture. Discharge Plan Triage Chief Complaint: Fall ED Provider: Danial Shepherd Dx/Rx/DC Orders Prescriptions: No Action sertraline [Zoloft] 50 mg tablet 12.5 mg PO DAILY Qty: 30 2RF ondansetron 4 mg tablet,disintegrating 4 mg PO Q4H PRN (Reason: nausea and vomiting) Qty: 60 2RF Primary Care Provider: Reba Hager NP Referrals: Reba Hager NP, [facility] [Primary Care Provider, Family Practice] Print Language: Lao
--- NOTE | 2025-02-04 10:12 | RAD_ITS ---
PROCEDURE: WRIST MIN 3 VIEWS 02/04/2025 REASON FOR EXAM: FALL TECHNIQUE: Procedure Code: RADWR Modality: DX Procedure: WRIST MIN 3 VIEWS Laterality: Left wrist COMPARISON: None FINDINGS: Bones: No visible fracture. No suspicious bone lesion. Joints: Normal alignment. Soft tissues: Mild soft tissue swelling. Other: RAD/Wrist min 3 Views IMPRESSION: Soft tissue swelling. No acute abnormality is seen. Reading Location: [place] [id number]
--- NOTE | 2025-02-04 10:12 | RAD_ITS ---
PROCEDURE: ELBOW MIN 3 VIEWS 02/04/2025 REASON FOR EXAM: FALL TECHNIQUE: Procedure Code: RADEL Modality: DX Procedure: ELBOW MIN 3 VIEWS Laterality: Left elbow COMPARISON: None FINDINGS: Bones: Nondisplaced fracture of the radial head. Joints: Normal alignment. Soft tissues: Small joint effusion. Other: RAD/Elbow min 3 Views IMPRESSION: Nondisplaced radial head fracture. Small joint effusion. Reading Location: [place] [id number]
[2025-02-04 11:05] VITALS: BP 106/65; PULSE 69; RESP 17; TEMP 36.6; O2SAT 100
[2025-02-04 11:06] VITALS: O2SAT 100
== END 2025-02-04 11:08 | disposition home or self-care (01) ==
PROVIDERS: Emergency Provider Emergency Medicine; PCP Nurse Practitioner Primary Care; Visit Provider Emergency Medicine
DX: M25.522 Pain in left elbow (principal); W00.0XXA Fall on same level due to ice and snow, initial encounter; Y93.89 Activity, other specified
CPT/HCPCS: 73080; 73110; 99283